=== PATIENT | female | born 1985 | race Two or more races ===

== ENCOUNTER 2025-09-25 20:12 | Inpatient (IN) | payer MEDICAID, SELFPAY ==
[2025-09-25 20:14] VITALS: BMI 30.1
--- NOTE | 2025-09-25 20:25 | PD.EDADULT ---
ED General RME/HPI General Chief complaint: General Adult/Misc Complain Stated complaint: LEFT BREAST PAIN Arrival date/time: 09/25/25 20:12 RME / HPI RME / HPI narrative: Dr. Lovett?s Main ED Evaluation: 40yo female Related Data Home Medications ?Medication ?Instructions ?Recorded ?Confirmed amlodipine 10 mg tablet 10 mg PO QDAY 04/24/19 04/24/19 Previous Rx's ?Medication ?Instructions ?Recorded ciprofloxacin HCl 500 mg tablet 500 mg PO BID #14 tabs 04/24/19 (Cipro) hydrocodone 5 mg-acetaminophen 325 1 tab PO Q6H PRN pain #20 tabs 04/24/19 mg tablet ([place]) lisinopril 10 mg tablet 10 mg PO QDAY #30 tabs 07/26/20 calcium polycarbophil 625 mg 1,250 mg (2 x 625 mg) PO BID #30 07/26/23 tablet (FiberCon) tabs hydrocortisone acetate 25 mg 25 mg OK BID #24 ea 07/26/23 rectal suppository (Anusol-HC) ibuprofen 800 mg tablet 800 mg PO TID PRN pain #30 tabs 07/26/23 Allergies Allergy/AdvReac Type Severity Reaction Status Date / Time No Known Allergies Allergy Verified 07/26/20 16:07 Review of Systems Review of Systems Systems Reviewed: All systems reviewed, normal except as documented Past Medical History Past Medical History NEUROLOGIC: Negative Neurological Disorders or Seizures CARDIAC: Positive Hypertension; Negative Congestive Heart Failure RESPIRATORY: Negative Chronic Obstructive Pulmonary Disease (COPD) GASTROINTESTINAL: Negative Gastrointestinal Disorders GENITOURINARY: Positive Genitourinary Disorders and Kidney Stones; Negative Renal Disease REPRODUCTIVE: Negative Pelvic Inflammatory Disease MUSCULOSKELETAL: Negative Musculoskeletal Disorders ENDOCRINE: Negative Diabetes Mellitus Type 1 or Diabetes Mellitus Type 2 HEMATOLOGIC: Negative Blood Disorders OTHER HISTORY: Negative Blood Transfusions, Blood Transfusion Reaction or Anesthesia Reactions Family History FAMILY HISTORY: Negative Family Cardiac Disorders Surgical History SURGICAL: Positive Section (x4) Social History SMOKING STATUS: Never smoker SUBSTANCE USE: does not use ED Exam Narrative Physical exam: GENERAL APPEARANCE: alert and oriented x 4, well-developed, well-nourished, no acute distress VITALS: All vitals were reviewed and the pulse ox is % on room air, which is normal according to my interpretation. HEENT: Normocephalic, atraumatic; pupils equal, round, reactive to light; EOMI; mucous membranes pink, moist; oropharynx clear NECK: Supple LUNGS: CTABL; no wheezes, no rales, no rhonchi HEART: Regular rate, regular rhythm; normal S1, S2; no murmurs ABDOMEN: non distended; normal BS; soft, no tenderness, no guarding, no rebound; no masses, no organomegaly, no hernia BACK: no CVA tenderness EXTREMITIES: atraumatic; no edema NEUROLOGIC: awake; alert and oriented x4; cranial nerves II-XII grossly intact; no focal sensory or motor deficits PSYCHIATRIC: appropriate mood and affect SKIN: warm, dry, normal color; no rashes Discharge Plan Prescriptions/Referrals Prescriptions/Med Rec: No Action amlodipine 10 mg Tablet 10 mg PO QDAY hydrocodone-acetaminophen [[place]] 5-325 mg tablet 1 tab PO Q6H MDD 4 PRN (Reason: pain) Qty: 20 0RF ciprofloxacin HCl [Cipro] 500 mg tablet 500 mg PO BID Qty: 14 0RF lisinopril 10 mg tablet 10 mg PO QDAY Qty: 30 0RF calcium polycarbophil [FiberCon] 625 mg tablet 1,250 mg PO BID Qty: 30 0RF hydrocortisone acetate [Anusol-HC] 25 mg suppository 25 mg OK BID Qty: 24 0RF ibuprofen 800 mg tablet 800 mg PO TID PRN (Reason: pain) Qty: 30 0RF Patient/Caregiver Discharge Instructions Print Language: Welsh MDM Narrative MDM hospital course (for use when minimal MDM required): Scribe Attestation: 09/25/25 - Mary Peterson am scribing for and in the presence of Dr. Lovett. Clinical Information Provided by: patient Medical Records reviewed [facility] (Per chart review, patient was seen here on 07/26/23 for external hemorrhoid, thrombosed.) Meds/Rx considered, not ordered None Labs/Rad/Tests considered, not ordered None Chronic Illness/Social Conditions Explain: Hx HTN
[2025-09-25 20:32] VITALS: BP 149/91; PULSE 120; RESP 20; TEMP 38.1; O2SAT 97
--- NOTE | 2025-09-25 20:40 | XR_ITS ---
EXAMINATION: PA chest single view TECHNIQUE: Upright PA chest single view Date and time: September 25, 2025, 2043 hours INDICATIONS: Chest pain shortness of breath weakness beginning 2 days ago. FINDINGS: Normal heart size Minor subsegmental atelectasis left base. No pneumonia or pulmonary edema IMPRESSION: No pneumonia or pulmonary edema
--- NOTE | 2025-09-25 20:49 | PD.EDRME ---
Rapid Medical Screening Exam RME Arrival date/time: 09/25/25 20:12 40F with history of HTN presents to ED with 1 day of L breast pain and fevers/chills. Patient denies URI symptoms and has not been breast feeding. Patient also denies skin injury. Chief Complaint: General Adult/Misc Complain Time Seen by Provider: 09/25/25 20:25 Vital signs: Vital Signs Temperature 100.5 F H 09/25/25 20:32 Pulse Rate 120 H 09/25/25 20:32 Respiratory Rate 20 09/25/25 20:32 Blood Pressure 149/91 H 09/25/25 20:32 Pulse Oximetry (%) 97 09/25/25 20:32 Oxygen Delivery Method Room Air 09/25/25 20:32 Exam: L breast very tender, but no obvious redness or swelling. Clinical Impression: Cellulitis vs skin abscess vs URI vs CAP vs breast cancer vs mastitis
[2025-09-25 21:06] LABS: Lactate (Lactic Acid) 1.9 mMol/L (0.4-2.0)
[2025-09-25 21:07] LABS: Basophils # (Auto) 0.1 Thou/mm3 (0.0-0.2); Basophils % (Auto) 0 % (0-2.5); Eosinophils # (Auto) 0.0 Thou/mm3 (0.0-0.5); Eosinophils % (Auto) 0 % (0-10); Hematocrit 29.0 % (36.0-46.0); Hemoglobin 9.1 g/dL (12.0-16.0); Immature Granulocytes Auto 0.11 Thou/mm3 (0.00-0.00); Lymphocytes # (Auto) 2.4 Thou/mm3 (1.0-4.8); Lymphocytes % (Auto) 11 % (10-50); Mean Corpuscular HGB Conc 31.4 g/dl (31.0-37.0); Mean Corpuscular Hemoglobin 22.0 pg (25.0-35.0); Mean Corpuscular Volume 70 fL (80-100); Monocytes # (Auto) 1.0 Thou/mm3 (0.0-0.8); Monocytes % (Auto) 5 % (0-12); Neutrophils # (Auto) 18.2 Thou/mm3 (1.8-7.7); Neutrophils % (Auto) 83 % (37-80); Nucleated Red Blood Cell # 0.00 Thou/mm3 (0.00-0.00); Nucleated Red Blood Cell % 0 /100 WBC (0); Platelet Count 495 Thou/mm3 (140-440); RDW Standard Deviation 41.2 fL (36.4-46.3); Red Blood Count 4.14 Miln/mm3 (4.00-5.20); White Blood Count 21.8 Thou/mm3 (3.6-11.0)
[2025-09-25 21:30] VITALS: BP 123/75; PULSE 112; RESP 18; TEMP 37.9; O2SAT 100
[2025-09-25] MEDS: SODIUM CHLORIDE 0.9% 1000 ML 1,000 ML 999 ML IV ×2 (21:32→23:09)
[2025-09-25] MEDS: KETOROLAC INJ 30 MG/ML VIAL IVP (21:32)
[2025-09-25] MEDS: cefTRIAXone/D5w 1gm IV premix 1 GM/50 ML BAG IV (21:32)
[2025-09-25 21:42] LABS: Alanine Aminotransferase 16 U/L (10-49); Albumin, Serum 4.4 gm/dL (3.5-5.0); Albumin/Globulin Ratio 1.3 (1.2-2.2); Alkaline Phosphatase 94 U/L (46-116); Anion Gap 10 (7-16); Aspartate Amino Transferase 17 U/L (0-34); BUN/Creatinine Ratio 11 Ratio (12-20); Bilirubin,Total 0.3 mg/dL (0.3-1.2); Blood Urea Nitrogen 9 mg/dL (9-23); Calcium 9.4 mg/dL (8.3-10.6); Calcium (Corrected) 9.4 mg/dL (8.5-10.1); Carbon Dioxide 20.2 mMol/L (20.0-31.0); Chloride 107 mMol/L (98-107); Creatinine (Component) 0.8 mg/dL (0.6-1.3); Estimated Creatinine Clearance 92.8 mL/min (>60); Globulin 3.3 gm/dL (2.3-3.5); Glucose 191 mg/dL (74-106); Osmolality,Calculated 277 (275-295); Potassium 3.7 mMol/L (3.4-5.1); Procalcitonin < 0.04 ng/ml (0.0-0.49); Sodium 137 mMol/L (136-145); Total Protein 7.7 gm/dL (5.7-8.2); eGFR > 60 See Note
--- NOTE | 2025-09-25 21:48 | PD.EDADULT ---
ED General RME/HPI General Chief complaint: General Adult/Misc Complain Stated complaint: LEFT BREAST PAIN Time Seen by Provider: 09/25/25 20:25 Arrival date/time: 09/25/25 20:12 RME / HPI RME / HPI narrative: 09/25/25 20:12 40F with history of HTN presents to ED with 1 day of L breast pain and fevers/chills. Patient denies URI symptoms and has not been breast feeding. Patient also denies skin injury. Dr. Lovett?s Main ED Evaluation: 40yo female presenting with sudden onset left breast pain and swelling x 1 day. No fever, but reports occasional chills. Nausea without emesis. PMH includes DM, HTN, kidney stones. PSH includes x4, renal surgery for kidney stones. Social history is unremarkable. Related Data Home Medications ?Medication ?Instructions ?Recorded ?Confirmed amlodipine 10 mg tablet 10 mg PO QDAY HTN 04/24/19 09/26/25 aspirin 81 mg chewable tablet 1 tab PO QDAY 09/26/25 09/26/25 lisinopril 20 mg tablet 20 mg PO QDAY HTN 09/26/25 09/26/25 tramadol 50 mg tablet 50 mg PO QDAY 09/26/25 09/26/25 Previous Rx's ?Medication ?Instructions ?Recorded lisinopril 10 mg tablet 10 mg PO QDAY #30 tabs 07/26/20 Allergies Allergy/AdvReac Type Severity Reaction Status Date / Time No Known Allergies Allergy Verified 07/26/20 16:07 Review of Systems Review of Systems Systems Reviewed: All systems reviewed, normal except as documented Past Medical History Past Medical History NEUROLOGIC: Negative Neurological Disorders or Seizures CARDIAC: Positive Hypertension; Negative Congestive Heart Failure RESPIRATORY: Negative Chronic Obstructive Pulmonary Disease (COPD) GASTROINTESTINAL: Negative Gastrointestinal Disorders GENITOURINARY: Positive Genitourinary Disorders and Kidney Stones; Negative Renal Disease REPRODUCTIVE: Negative Pelvic Inflammatory Disease MUSCULOSKELETAL: Negative Musculoskeletal Disorders ENDOCRINE: Negative Diabetes Mellitus Type 1 or Diabetes Mellitus Type 2 HEMATOLOGIC: Negative Blood Disorders OTHER HISTORY: Negative Blood Transfusions, Blood Transfusion Reaction or Anesthesia Reactions Family History FAMILY HISTORY: Negative Family Cardiac Disorders Surgical History SURGICAL: Positive Section Social History SMOKING STATUS: Never smoker SUBSTANCE USE: does not use ED Exam Narrative Physical exam: GENERAL APPEARANCE: alert and oriented x 4, well-developed, well-nourished, no acute distress VITALS: All vitals were reviewed and the pulse ox is 100% on room air, which is normal according to my interpretation. Notably febrile and tachycardic. HEENT: Normocephalic, atraumatic; pupils equal, round, reactive to light; EOMI; mucous membranes pink, moist; oropharynx clear NECK: Supple LEFT BREAST: Female administrative support coordinator present. No nipple discharge or edema. 3x3 cm exquisite tender subcutaneous mass to the left lower lateral quadrant. LUNGS: CTABL; no wheezes, no rales, no rhonchi HEART: Tachycardic, regular rhythm; normal S1, S2; no murmurs ABDOMEN: non distended; normal BS; soft, no tenderness EXTREMITIES: atraumatic; no edema NEUROLOGIC: awake; alert and oriented x4; cranial nerves II-XII grossly intact; no focal sensory or motor deficits PSYCHIATRIC: appropriate mood and affect SKIN: warm, dry, normal color; no rashes Course Course Course Narrative: 2039: Sepsis alert initiated. Orders made at this time are congruent with ED Adult Sepsis Order List. Re-evaluation is to be completed. CXR is ordered for determining the etiology of fever. 2131: NS IVF infused. 2252: Sepsis reassessment performed consisting of lab review, vitals, physical exam including auscultation of heart, lungs, and visual evaluation of capillary refills, mucosal membranes and extremities. Quality Measures Possible source: skin/soft tissue Blood cultures ordered: no Antibiotic ordered: Yes Pertinent labs: 09/25/25 20:52 Lactic Acid 1.9 mMol/L (0.4-2.0) Procalcitonin < 0.04 ng/ml (0.0-0.49) sepsis Orders Category Date Time Status Bedside COVID-19 Antigen Test NOW Care 09/25/25 23:39 Active Bedside Influenza A&B Antigen Test NOW Care 09/25/25 23:39 Completed COVID-19 Screening Questionnaire NOW Care 09/25/25 23:59 Active Continuous Pulse Oximetry STAT Care 09/25/25 21:57 Completed EKG (ED ONLY) *Do not use* NOW Care 09/25/25 21:57 Completed In and Out Catheter X1PRN Care 09/25/25 21:57 Completed Insert IV NOW Care 09/25/25 20:40 Active Insert IV NOW Care 09/25/25 21:57 Active NPO STAT Care 09/25/25 21:57 Completed Strict Intake and Output Routine Care 09/25/25 21:[address] chest abdomen pelvis wo Stat Exams 09/26/25 00:01 Completed EKG (ED Only) Stat Exams 09/25/25 21:57 Draft US breast LT complete Stat Exams 09/25/25 22:07 Completed XR chest 1V portable Stat Exams 09/25/25 20:40 Completed B-Type Natriuretic Peptide Stat Lab 09/25/25 20:52 Completed Blood Culture (Lab) Stat Lab 09/25/25 20:58 Results CBC Stat Lab 09/25/25 20:52 Completed CMP [Comprehensive Metabolic Panel] Stat Lab 09/25/25 20:52 Completed Drug Screen,Urine Stat Lab 09/25/25 21:17 Completed HCG Qualitative,Urine Stat Lab 09/25/25 21:17 Completed LDH (Lactate Dehydrogenase) Stat Lab 09/25/25 20:52 Completed Lactate (Lactic Acid) Stat Lab 09/25/25 20:52 Completed Lipase Stat Lab 09/25/25 20:52 Completed Magnesium Stat Lab 09/25/25 20:52 Completed Partial Thromboplastin Time Stat Lab 09/25/25 20:52 Completed Phosphorous Stat Lab 09/25/25 20:52 Completed Procalcitonin Stat Lab 09/25/25 20:52 Completed Prothrombin Time with INR Stat Lab 09/25/25 20:52 Completed Troponin I Stat Lab 09/25/25 20:52 Completed Urinalysis, C/S if Indicated Stat Lab 09/25/25 21:16 Completed Ketorolac Inj [Toradol Inj] Med 09/25/25 20:40 Discontinued 30 mg IVP X1 ONE Ringers Lactated 1000 ml [Lactated Ringers] 1,572 ml Med 09/25/25 21:57 Discontinued IV 1,572 mls/hr Sodium Chloride 0.9% 1000 ml [Ns] 1,000 ml Med 09/25/25 20:40 Discontinued IV 999 mls/hr Sodium Chloride 0.9% 1000 ml [Ns] 1,000 ml Med 09/25/25 22:19 Discontinued IV 999 mls/hr Vancomycin Inj 1,000 mg Med 09/25/25 22:30 Discontinued Sodium Chloride 0.9% 250 ml [Ns] 250 ml IV X1 Vancomycin Pharmacy to Dose Med 09/26/25 09:00 Active 1 each IV QDAY PRN cefTRIAXone/D5w 1gm IV premix [Rocephin/D5w 1gm IV Med 09/25/25 20:40 Discontinued premix] 1 gm in 50 ml IV X1 Oxygen Delivery NOW RT 09/25/25 21:57 Active Vital Signs Vital signs: Vital Signs Temperature 100.5 F H 09/25/25 20:32 Pulse Rate 120 H 09/25/25 20:32 Respiratory Rate 20 09/25/25 20:32 Blood Pressure 149/91 H 09/25/25 20:32 Pulse Oximetry (%) 97 09/25/25 20:32 Oxygen Delivery Method Room Air 09/25/25 20:32 Critical Care Time Critical Care Time Critical Care Time: Yes Total Critical Care Time (min.): 40 Attestation: The high probability of sudden, clinically significant deterioration in the patient?s condition required the highest level of my preparedness to intervene urgently. The services I provided to this patient were to treat and/or prevent clinically significant deterioration. Services included the following: chart data review, reviewing nursing notes and/or old charts, documentation time, jury consultant collaboration regarding findings and treatment options, medication orders and management, direct patient care, vital sign assessments and ordering, interpreting and reviewing diagnostic studies and lab tests. Aggregate critical care time includes only time during which I was engaged in work directly related to the patient?s care, as described above, whether at bedside or elsewhere in the Emergency Department. It did not include time spent performing other reported procedures or the services of residents, students, nurses or physician assistants. Discharge Plan Plan Patient Disposition: Admit Acute Care w/in Hospital Problem List Clinical Impression: Acute febrile illness, Acute sepsis MDM Narrative MDM hospital course (for use when minimal MDM required): Scribe Attestation: 09/25/25 Mary Mcknight am scribing for and in the presence of Dr. Lovett. 40yo female presenting with sudden onset left breast pain and swelling x 1 day. No fever, but reports occasional chills. Nausea without emesis. Please see PE findings. Lab markers concerning for markedly elevated WBC count of 21.8 and left shift. Patient enrolled in sepsis protocol and received empiric dual IV antibiotics in addition to low-dose narcotic analgesics and fluids per protocol. Patient pending breast US. Left breast ultrasound demonstrates nodule suspicious for possible breast carcinoma, no definitive breast abscess is evident. Will obtain COVID and Influenza swabs as source of infection is not clearly known at this time. Will consult the hospitalist for admission for IV abx pending cultures. Dx: acute febrile illness, acute sepsis Clinical Information Provided by: patient Medical Records reviewed [facility] (Per chart review, patient was seen here on 07/26/23 for external hemorrhoid, thrombosed.) Meds/Rx considered, not ordered None Labs/Rad/Tests considered, not ordered None Chronic Illness/Social Conditions Explain: Hx HTN EKG Interpretation EKG #1: EKG Interpretation: EKG done at 2233, sinus rhythm, rate of 98, no acute pathological ST segment changes, no ectopy, nonspecific ST-T changes, normal axis, according to my interpretation. Labs Labs: interpreted by me Imaging Imaging interpretation: interpreted by me Imaging Interpretation(s): [facility] Signed Patient: SEVENLUIS ENRIQUESTEPHENPADILLAEVAKUN Med. Record#: [id number] Birthdate: 1985 Age/Sex: 40 / F Location: [facility] Attending Dr: Ordering Physician: Sourav Park PA-C Date of Service: 09/25/25 Procedure(s): XR chest 1V portable Accession Number(s): [id number] cc: Nick Colunga MD; Bonnie Anne COLLARETTE SEPARATOR; Sourav Park PA-C~ EXAMINATION: PA chest single view TECHNIQUE: Upright PA chest single view Date and time: September 25, 2025, 2043 hours INDICATIONS: Chest pain shortness of breath weakness beginning 2 days ago. FINDINGS: Normal heart size Minor subsegmental atelectasis left base. No pneumonia or pulmonary edema IMPRESSION: No pneumonia or pulmonary edema Dictated By: Nick Colunga MD Signed By: <Electronically signed by Nick Colunga MD in OV> 09/25/258 [facility] Signed Patient: NATASHASTEPHENPADILLAKUN VELASQUEZ Record#: [id number] Birthdate: 1985 Age/Sex: 40 / F Location: [facility] Attending Dr: Ordering Physician: Suresh Villarreal DO Date of Service: 09/25/25 Procedure(s): US breast LT complete Accession Number(s): [id number] cc: Suresh Villarreal DO; Nick Colunga MD; Bnonie Anne NP~ Examination: Breast ultrasound, unilateral, left INDICATIONS: Left breast pain today Date and time of exam: September 25, 2025, 10:20 p.m. Technique: Real-time muñoz scale ultrasonographic imaging performed left breast including all 4 quadrants as well as nipple retroareolar and axillary region. Findings: 12:00 cyst 4 x 4 mm 1:00 nodule indistinct margins 25 x 27 mm 2:00 nodule lobular margins 16 x 16 mm IMPRESSION: BI-RADS Category 4: Suspicious for malignancy Suspicious nodule 1 o'clock position left breast, biopsy is needed to exclude breast carcinoma, this mass is amenable to ultrasound-guided breast biopsy for diagnosis Also recommend diagnostic mammography follow-up Dictated By: Nick Colunga MD Signed By: <Electronically signed by Nick Colunga MD in OV> 09/25/25 1477 Medication Administration(s) Medication Administration History Acetaminophen (Acetaminophen 325 Mg Tablet) 650 mg PO Q6H PRN PRN Reason: Fever >101.5 Stop: 10/26/25 03:03 Last Admin: 09/27/25 16:06 Dose: 650 mg Documented By: CHAVO Hydrocodone Bitart/Acetaminophen (Hydrocodone/Apap 5/325 Tablet) 1 tab PO Q4HR PRN PRN Reason: PAIN SCALE 7-10 (Severe Stop: 10/01/25 03:03 Last Admin: 09/26/25 23:40 Dose: 1 tab Documented By: Admin: 09/26/25 09:39 Dose: 1 tab Documented By: AALIYAH Ceftriaxone Sodium/Dextrose (Rocephin/D5w 1gm Iv Premix) 1 gm in 50 mls @ 100 mls/hr IV QDAY [facility] Stop: 10/03/25 14:22 Last Admin: 09/27/25 10:53 Dose: 100 mls/hr Documented By: Infusion: 09/26/25 15:20 Dose: Infused Documented By: Admin: 09/26/25 14:50 Dose: 100 mls/hr Documented By: ROYER Vancomycin/Sodium Chloride (Vancomycin/Ns 1 Gm Ivpb) 200 mls @ 120 mls/hr IV BID@1000,2200 ADITYA; Protocol Stop: 10/04/25 10:44 Last Admin: 09/27/25 23:38 Dose: 120 mls/hr Documented By: Infusion: 09/27/25 14:24 Dose: Infused Documented By: Admin: 09/27/25 12:43 Dose: 120 mls/hr Documented By: CHAVO Morphine Sulfate (Morphine Sulf Inj 4 Mg/Ml Vial) 2 mg IVP Q6HR PRN; Protocol PRN Reason: BREAKTHROUGH PAIN (SEVERE) Stop: 10/01/25 03:03 Ondansetron HCl (Ondansetron Inj 2 Mg/Ml Inj 2 Ml) 4 mg IVP Q6H PRN; Protocol PRN Reason: NAUSEA OR VOMITING Stop: 10/26/25 03:03 Pantoprazole Sodium (Pantoprazole 40 Mg Tablet) 40 mg PO QDAY ADITYA Stop: 10/26/25 08:59 Last Admin: 09/27/25 10:53 Dose: 40 mg Documented By: Admin: 09/26/25 09:16 Dose: 40 mg Documented By: Pharmacy Consult (Vancomycin Pharmacy To Dose 1 Each Each) 1 each IV QDAY PRN PRN Reason: CONSULT Stop: 10/26/25 08:59 Discontinued Medications Sodium Chloride (Ns) 1,000 mls @ 999 mls/hr IV .Q1H1M ONE Stop: 09/25/25 21:40 Last Infusion: 09/25/25 22:23 Dose: Infused Documented By: Admin: 09/25/25 21:32 Dose: 999 mls/hr Documented By: AKIL Ceftriaxone Sodium/Dextrose (Rocephin/D5w 1gm Iv Premix) 1 gm in 50 mls @ 100 mls/hr IV X1 ONE Stop: 09/25/25 21:09 Last Infusion: 09/25/25 22:02 Dose: Infused Documented By: Admin: 09/25/25 21:32 Dose: 100 mls/hr Documented By: AKIL Lactated Ringer's (Lactated Ringers) 1,572 mls @ 1,572 mls/hr 30 ml/kg infuse over 60 min (1572 ml) IV .Q1H ONE Stop: 09/25/25 22:56 Last Infusion: 09/25/25 23:51 Dose: Infused Documented By: Admin: 09/25/25 22:31 Dose: 1,572 mls/hr Documented By: AKIL Sodium Chloride (Ns) 1,000 mls @ 999 mls/hr IV .Q1H1M ONE Stop: 09/25/25 23:19 Last Infusion: 09/26/25 00:10 Dose: Infused Documented By: Admin: 09/25/25 23:09 Dose: 999 mls/hr Documented By: AKIL Vancomycin HCl 1,000 mg/ (Sodium Chloride) 250 mls @ 120 mls/hr IV X1 ONE Stop: 09/26/25 00:34 Last Infusion: 09/26/25 01:15 Dose: Infused Documented By: Admin: 09/25/25 23:10 Dose: 120 mls/hr Documented By: AKIL Vancomycin/Sodium Chloride (Vancomycin/Ns 1 Gm Ivpb) 200 mls @ 120 mls/hr IV TID ADITYA; Protocol Stop: 10/03/25 13:59 Last Admin: 09/27/25 05:12 Dose: Not Given Documented By: KANIKA Non-Admin Reason: Held due to vanco trough level (22.7) Admin: 09/26/25 22:30 Dose: Not Given Documented By: KANIKA Non-Admin Reason: Per Protocol Comments: Vanco trough came back high at 22.7. Patient was not given medication but was spiked by nurse by error. Charge nurse notified. MD. was also made aware of vanco through level (Dr. Joshi). Per instruction from phamacy and doctor. Hold mediation. Medication wasted in med room due to spiking error. Infusion: 09/26/25 16:31 Dose: Infused Documented By: Admin: 09/26/25 14:50 Dose: 120 mls/hr Documented By: ROYER Vancomycin/Sodium Chloride (Vancomycin/Ns 1 Gm Ivpb) 200 mls @ 120 mls/hr IV X1 ONE Stop: 09/26/25 11:09 Last Infusion: 09/26/25 12:00 Dose: Infused Documented By: Admin: 09/26/25 09:40 Dose: 120 mls/hr Documented By: AALIYAH Ketorolac Tromethamine (Ketorolac Inj 30 Mg/Ml Vial) 30 mg IVP X1 ONE Stop: 09/25/25 20:41 Last Admin: 09/25/25 21:32 Dose: 30 mg Documented By: AKIL Nitrofurantoin Macrocrystals (Nitrofurantoin Macro 100 Mg Capsule) 100 mg PO BID ADITYA Stop: 09/29/25 08:59 Last Admin: 09/26/25 09:16 Dose: 100 mg Documented By: Potassium Phos/Sodium Phos (Naph,[facility] Mbdb 1 Packet (1.5 Gm)) 1 packet PO X1 ONE Stop: 09/26/25 07:15 Last Admin: 09/26/25 08:31 Dose: 1 packet Documented By: DO Sennosides (Senna/Docusate Sod 1 Tab Tablet) 1 tab PO X1 ONE; Protocol Stop: 09/27/25 19:48 Last Admin: 09/27/25 20:21 Dose: 1 tab Documented By: JESSICA Sennosides (Senna Tablet) 1 tab PO X1 ONE; Protocol Stop: 09/27/25 19:50 see above Consultations/Discussions re: Management Consult #1: Date/time: 09/25/25 11:57 pm Physician, specialty, service, details: Discussed case with the resident physician, attending Dr. Doshi from Hospitalist service regarding admission. Discussed patients ED course, exam findings, labs, and radiology results. The Hospitalist will evaluate the patient for admission. Diagnosis Differential Diagnosis ED Complaint MDM: sepsis, UTI, pneumonia, mastitis, abscess, dehydration
[2025-09-25 21:57] VITALS: RESP 18; O2SAT 99
[2025-09-25 21:57] LABS: HCG Qualitative,Urine Negative
--- NOTE | 2025-09-25 21:57 | EKG_ITS ---
[facility] Test Date: 2025-09-25 Pat Name: KUN DEL VALLEepartment: Room: - Gender: Female Dispute Resolution Analyst: : 1985 Requested By: Suresh Montaño Order Number: [id number] Reading MD: Suresh Montaño Measurements Intervals [place] Rate: 98 P: 8 IA: 144 QRS: 47 QRSD: 84 T: 13 QT: 338 QTc: 432 Interpretive Statements SINUS RHYTHM NONSPECIFIC T-WAVE ABNORMALITY No previous ECG available for comparison /store/S0/[id number]/ecg/[id number].pdf
[2025-09-25 22:02] LABS: Amphetamine/Methamp Scrn,U Negative (Negative); Barbiturate Screen,Urine Negative (Negative); Benzodiazepines Screen,Urine Negative (Negative); Benzoylecgonine Screen, Ur Negative (Negative); Fentanyl Screen,Urine Negative (Negative); Opiate Screen,Urine Negative (Negative); THC Screen,Urine Negative (Negative)
--- NOTE | 2025-09-25 22:07 | XR_ITS ---
Examination: Breast ultrasound, unilateral, left INDICATIONS: Left breast pain today Date and time of exam: September 25, 2025, 10:20 p.m. Technique: Real-time muñoz scale ultrasonographic imaging performed left breast including all 4 quadrants as well as nipple retroareolar and axillary region. Findings: 12:00 cyst 4 x 4 mm 1:00 nodule indistinct margins 25 x 27 mm 2:00 nodule lobular margins 16 x 16 mm IMPRESSION: BI-RADS Category 4: Suspicious for malignancy Suspicious nodule 1 o'clock position left breast, biopsy is needed to exclude breast carcinoma, this mass is amenable to ultrasound-guided breast biopsy for diagnosis Also recommend diagnostic mammography follow-up
[2025-09-25 22:15] LABS: Collection Type, Urine Clean Catch
[2025-09-25 22:17] LABS: INR 1.0 (0.9-1.3); Partial Thromboplastin Time 26.0 Seconds (22.0-36.0); Prothrombin Time 10.4 Seconds (9.0-12.2)
[2025-09-25 22:20] LABS: LDH (Lactate Dehydrogenase) 205 U/L (120-246); Lipase 37 U/L (12-53); Magnesium 1.9 mg/dL (1.6-2.6); Phosphorous 2.1 mg/dL (2.4-5.1); Troponin I < 0.002 ng/mL (0.0-0.045)
[2025-09-25 22:27] LABS: Amorphous Crystals,Urine Present (Absent); Bacteria,Urine Rare; Bilirubin,Urine Negative (Negative); Blood,Urine 1+ (Negative); Budding Yeast,Urine Present; Clarity,Urine Turbid (Clear/Hazy); Color,Urine Lt-Yellow (Lt Yel-Yel); Culture Indicated,Urine Not Indicated; Glucose, Urine 1+ (Negative); Ketones,Urine Negative (Negative); Leukocyte Esterase,Urine Negative (Negative); Nitrite,Urine Negative (Negative); PH,Urine 7.0 (5.0-7.0); Protein,Urine Negative (Neg - Trace); RBC,Urine 12 /hpf (0-3); Specific Gravity,Urine 1.018 (1.001-1.035); Squamous Epithelial Cell,Urine 2 /hpf (0-5); Urobilinogen,Urine Negative mg/dL (0.0-1.0); WBC,Urine 7 /hpf (0-5)
[2025-09-25 22:29] LABS: B-Type Natriuretic Peptide < 20 pg/mL (0-100)
[2025-09-25 22:32] VITALS: TEMP 36.7
[2025-09-25 22:38] VITALS: BP 108/68; PULSE 99; RESP 16; TEMP 37.1; O2SAT 99
[2025-09-25] MEDS: Vancomycin Inj 1,000 MG in SODIUM CHLORIDE 0.9% 250 ML 250 ML 120 MG IV (23:10)
[2025-09-26] VITALS (9 sets, daily range): BP systolic 100–148; BP diastolic 54–75; PULSE 76–95; RESP 16–21; TEMP 36.6–37.4; O2SAT 96–100; BMI 30.1
--- NOTE | 2025-09-26 00:01 | XR_ITS ---
Examination: CT chest, without intravenous contrast. CT abdomen, without intravenous contrast. CT pelvis, without intravenous contrast. 2-D sagittal and coronal reconstructions. 3-D reconstructions. Date and time of exam: September 26, 2025, 0106 hours INDICATIONS: Sepsis alert, unknown source of infection today CTDI vol (mgy) 8.01 DLP (MGycm) 570 Technique: Multiple CT images, 3.0 mm slice thickness, obtained chest, abdomen, pelvis, with the high-resolution 64 slice scanner.. Sagittal and coronal 2-D reconstructions are obtained. 3-D reconstructions Low dose protocols were performed. One or more of the following dose reduction techniques were used; automated exposure control, adjustment of the mA and/or KV according to patient size, use of iterative reconstruction technique. Findings: No thoracic aortic aneurysm dilatation Pulmonary artery segments are not enlarged. No mediastinal lymphadenopathy. Atelectasis versus mild pneumonia in the lingular segment No liver or splenic lesion No gallstones Gallbladder wall does not appear thickened No pancreatic or adrenal mass Large right renal calculi with mild dilatation of right renal calyces and proximal right ureter, no ureteral calculi No bowel obstruction Normal appendix No pelvic mass Bladder intact IMPRESSION: Atelectasis versus mild pneumonia in the lingular segment left upper lobe Multiple right renal calculi Suspicious for right urinary tract infection Normal appendix
--- NOTE | 2025-09-26 02:51 | PRELIM_ITS ---
CT scan of the chest, abdomen and pelvis without intravenous contrast (axial sections with sagittal and coronal reformats) September 26, 2025 0106 hours Clinical History: Sepsis no obvious source Comparison: None available at the time of this report. Findings: Small consolidation in the lingula. There is no pleural effusion or pneumothorax. The aorta is unremarkable on this noncontrast study. No evidence of mediastinal mass or lymphadenopathy. There is no pericardial effusion. The liver, gallbladder, spleen, pancreas, and adrenals are unremarkable on this noncontrast study. Nonobstructing right kidney stones. No evidence of bowel obstruction. The appendix is within normal limits. The urinary bladder is unremarkable. The uterus and ovaries are within normal limits. There is no free fluid or free air. Fat-containing umbilical hernia without evidence of inflammation. The osseous structures are unremarkable. Impression: Nonobstructing right nephrolithiasis. Small consolidation in the lingula, atelectasis versus scarring versus small focus of pneumonia. Report Electronically Signed By: Harlan John 09/26/2025 2:51:02 AM [EST]
[2025-09-26 03:55] LABS: Cardiac Risk Estimate 4.4 RATIO (3.7-5.6); Cholesterol 197 mg/dL (132-200); HDL Cholesterol 45 mg/dL (40-60); LDL Cholesterol,Calculated 117 mg/dL (0-130); Triglycerides 175 mg/dL (30-150)
--- NOTE | 2025-09-26 05:11 | PD.RESHP ---
Documentation for date of: 09/26/25 HPI History of Present Illness Chief complaint: Pain in the left breast History of present illness: A 40-year-old female with significant past medical history of hypertension, nephrolithiasis s/p procedure presented to the hospital with chief complaints of pain and lump in the left breast, fever since 1 day. Reported that she is normal 2 days ago, the day before admission she noticed small lump in the left breast while taking shower, following day she developed severe pain at the site of lump and fever on the day of admission. As the pain is worsening, presented to the hospital for further evaluation. Denies trauma, currently not actively lactating, recent sick contacts, nausea, vomitings, shortness of breath, chest pain, any other associated symptoms. Reported on the day of admission, she noted to have mild burning micturition but very minimal. ED course: - Vitals at the time of admission are significant for blood pressure 149/91 mmHg, pulse rate 120 bpm, temperature 100.5 ?F - Labs at the time of admission significant for WBC 21.8, platelet count 495, phosphorus 2.1 - Urinalysis significant for turbid urine, 1+ glucosuria, 1+ blood, 12 RBC, 7 WBC - Breast ultrasound was done that showed BI-RADS Category 4 - suspicion nodule 1 o'clock position left breast, 25 x 27 mm - Admitted in the hospital for suspected breast abscess Past medical history: Hypertension, nephrolithiasis Past surgical history: Nephrolithiasis s/p procedure, unsure of the name of the procedure Social history: Denies smoking, alcohol, other illicit drug abuse Allergies: NKDA Review of Systems Review of Systems Systems Reviewed: All systems reviewed, normal except as documented Exam Vital Signs Temp Pulse Resp BP Pulse Ox O2 Del Method 97.9 F 94 18 112/61 99 Room Air 09/26/25 03:24 09/26/25 03:24 09/26/25 03:24 09/26/25 03:24 09/26/25 03:24 09/26/25 00:12 Narrative Exam General: Awake. HEENT: Normocephalic, atraumatic, mucous membranes moist. Heart: Regular rate and rhythm, no murmurs. Breast: Noted lump in the left breast, severe tenderness, warmth noted. Lungs: Clear to auscultation with no wheezing or crackles. Abdomen: Soft, nondistended, nontender, positive bowel sounds. ?No guarding or rebound tenderness. Neurologic: Alert and oriented x3, no gross neurological deficit, and patient able to move all 4 extremities. Extremities: No edema. Skin: No rash or ecchymoses. Results: Labs 09/27/25 05:25 09/27/25 05:25 Labs: Short CBC 09/25/25 Range/Units 20:52 WBC 21.8 H (3.6-11.0) Thou/mm3 Hgb 9.1 L (12.0-16.0) g/dL Hct 29.0 L (36.0-46.0) % Plt Count 495 H (140-440) Thou/mm3 BMP 09/25/25 20:52 Sodium 137 Potassium 3.7 Chloride 107 Carbon Dioxide 20.2 BUN 9 Creatinine 0.8 Glucose 191 H Calcium 9.4 Cardiac Enzymes 09/25/25 Range/Units 20:52 Troponin I < 0.002 (0.0-0.045) ng/mL Liver Function 09/25/25 Range/Units 20:52 Total Bilirubin 0.3 (0.3-1.2) mg/dL AST 17 (0-34) U/L ALT 16 (10-49) U/L Alkaline Phosphatase 94 (46-116) U/L Albumin 4.4 (3.5-5.0) gm/dL Urine 09/25/25 Range/Units 21:16 Urine Color Lt-Yellow (Lt Yel-Yel) Urine Clarity Turbid A (Clear/Hazy) Urine pH 7.0 (5.0-7.0) Ur Specific [place] 1.018 (1.001-1.035) Urine Protein Negative (Neg - Trace) Urine Glucose (UA) 1+ A (Negative) Quality Measures Quality Measures sepsis Current suspected stage: ruled out Possible source: skin/soft tissue Blood cultures ordered: yes Antibiotic ordered: Yes Medications Home Medications and Allergies Home Medications ?Medication ?Instructions ?Recorded ?Confirmed ?Type amlodipine 10 mg tablet 10 mg PO QDAY HTN 04/24/19 09/26/25 History aspirin 81 mg chewable tablet 1 tab PO QDAY 09/26/25 09/26/25 History lisinopril 20 mg tablet 20 mg PO QDAY HTN 09/26/25 09/26/25 History tramadol 50 mg tablet 50 mg PO QDAY 09/26/25 09/26/25 History Allergies Allergy/AdvReac Type Severity Reaction Status Date / Time No Known Allergies Allergy Verified 07/26/20 16:07 Visit Medications Acetaminophen (Acetaminophen 325 Mg Tablet) 650 mg PO Q6H PRN PRN Reason: Fever >101.5 Stop: 10/26/25 03:03 Hydrocodone Bitart/Acetaminophen (Hydrocodone/Apap 5/325 Tablet) 1 tab PO Q4HR PRN PRN Reason: PAIN SCALE 7-10 (Severe Stop: 10/01/25 03:03 Morphine Sulfate (Morphine Sulf Inj 4 Mg/Ml Vial) 2 mg IVP Q6HR PRN PRN Reason: BREAKTHROUGH PAIN (SEVERE) Stop: 10/01/25 03:03 Ondansetron HCl (Ondansetron Inj 2 Mg/Ml Inj 2 Ml) 4 mg IVP Q6H PRN; Protocol PRN Reason: NAUSEA OR VOMITING Stop: 10/26/25 03:03 Pantoprazole Sodium (Pantoprazole 40 Mg Tablet) 40 mg PO QDAY [facility] Stop: 10/26/25 08:59 Pharmacy Consult (Vancomycin Pharmacy To Dose 1 Each Each) 1 each IV QDAY [facility] Stop: 10/26/25 08:59 Discontinued Medications Sodium Chloride (Ns) 1,000 mls @ 999 mls/hr IV .Q1H1M ONE Stop: 09/25/25 21:40 Last Infusion: 09/25/25 22:23 Dose: Infused Ceftriaxone Sodium/Dextrose (Rocephin/D5w 1gm Iv Premix) 1 gm in 50 mls @ 100 mls/hr IV X1 ONE Stop: 09/25/25 21:09 Last Infusion: 09/25/25 22:02 Dose: Infused Lactated Ringer's (Lactated Ringers) 1,572 mls @ 1,572 mls/hr 30 ml/kg infuse over 60 min (1572 ml) IV .Q1H ONE Stop: 09/25/25 22:56 Last Infusion: 09/25/25 23:51 Dose: Infused Sodium Chloride (Ns) 1,000 mls @ 999 mls/hr IV .Q1H1M ONE Stop: 09/25/25 23:19 Last Infusion: 09/26/25 00:10 Dose: Infused Vancomycin HCl 1,000 mg/ (Sodium Chloride) 250 mls @ 120 mls/hr IV X1 ONE Stop: 09/26/25 00:34 Last Infusion: 09/26/25 01:15 Dose: Infused Ketorolac Tromethamine (Ketorolac Inj 30 Mg/Ml Vial) 30 mg IVP X1 ONE Stop: 09/25/25 20:41 Last Admin: 09/25/25 21:32 Dose: 30 mg Assessment & Plan Plan A 40-year-old female with significant past medical history of hypertension, nephrolithiasis s/p procedure presented to the hospital with chief complaints of pain and lump in the left breast, fever since 1 day and admitted in view of breast mass, abscess versus breast carcinoma # Left breast mass # Abscess versus malignancy versus mass with superimposed infection - Presented to the hospital with chief complaints of pain, lump in the left breast and fever since 1 day - Reported that she noticed the lump on the day before admission and never had similar complaints in the past - Denies history of breast cancers in the family, noted to have lung cancer in the family - Denies weight loss, weight gain - Currently not actively lactating, last child age is 11 years - Denies trauma to the breast, fever, shortness of breath, cough, any other associated symptoms Diagnostics: - Vitals at the time of admission are significant for blood pressure 149/91 mmHg, pulse rate 120 bpm, temperature 100.5 ?F - Labs at the time of admission significant for WBC 21.8, platelet count 495, phosphorus 2.1. Pro-Homero is within normal limits - Urinalysis significant for turbid urine, 1+ glucosuria, 1+ blood, 12 RBC, 7 WBC - Breast ultrasound was done that showed BI-RADS Category 4 - suspicion nodule 1 o'clock position left breast, 25 x 27 mm - Blood cultures were sent, follow-up with results Plan: - Started on vancomycin - Consulted general surgeon, Dr. Schafer - Ultrasound-guided left breast mass biopsy - Pain medications as needed, [place] every fourth hourly - Warm compresses # History of hypertension - Blood pressure at the time of admission is 149/91 mmHg - Later the blood pressures are within normal limits Plan - Will hold blood pressure medications for now and resume as needed Hospital Maintenance: Dispo: Medsurg DVT ppx: SCD GI ppx: Protonix Diet: Regular IV lines: Peripheral Code status: Full Patient plan of care was discussed with the attending physician, Dr. Tico Medina, PGY2 Attending Provider Attestation/Addendum I have examined the patient, reviewed labs and imaging findings, discussed the case with the resident(s), and reviewed entered orders. I agree with the plan of care as outlined in this note, with these additional summaries/recommendations: 40-year-old female presents with fevers, chills, left-sided breast pain with breast lump that is acute in onset with associated fevers x 1 day. Patient met SIRS criteria with significantly elevated white count of 21, no other source of infection identified at this time. Will admit for IV antibiotic therapy and consult general surgery for possible biopsy with concern for infectious versus malignant process. Javon Doshi MD
[2025-09-26 06:41] LABS: Basophils # (Auto) 0.1 Thou/mm3 (0.0-0.2); Basophils % (Auto) 0 % (0-2.5); Eosinophils # (Auto) 0.0 Thou/mm3 (0.0-0.5); Eosinophils % (Auto) 0 % (0-10); Hematocrit 25.5 % (36.0-46.0); Immature Granulocytes Auto 0.09 Thou/mm3 (0.00-0.00); Lymphocytes # (Auto) 2.0 Thou/mm3 (1.0-4.8); Lymphocytes % (Auto) 14 % (10-50); Mean Corpuscular HGB Conc 30.6 g/dl (31.0-37.0); Mean Corpuscular Hemoglobin 21.7 pg (25.0-35.0); Mean Corpuscular Volume 71 fL (80-100); Monocytes # (Auto) 1.0 Thou/mm3 (0.0-0.8); Monocytes % (Auto) 7 % (0-12); Neutrophils # (Auto) 11.2 Thou/mm3 (1.8-7.7); Neutrophils % (Auto) 78 % (37-80); Nucleated Red Blood Cell # 0.00 Thou/mm3 (0.00-0.00); Nucleated Red Blood Cell % 0 /100 WBC (0); Platelet Count 370 Thou/mm3 (140-440); RDW Standard Deviation 42.0 fL (36.4-46.3); Red Blood Count 3.60 Miln/mm3 (4.00-5.20); White Blood Count 14.4 Thou/mm3 (3.6-11.0)
[2025-09-26 06:54] LABS: Hemoglobin 7.8 g/dL (12.0-16.0)
[2025-09-26 06:58] LABS: Anion Gap 11 (7-16); BUN/Creatinine Ratio 10 Ratio (12-20); Blood Urea Nitrogen 6 mg/dL (9-23); Calcium 8.0 mg/dL (8.3-10.6); Carbon Dioxide 22.3 mMol/L (20.0-31.0); Chloride 112 mMol/L (98-107); Creatinine (Component) 0.6 mg/dL (0.6-1.3); Estimated Creatinine Clearance 123.8 mL/min (>60); Glucose 129 mg/dL (74-106); Osmolality,Calculated 288 (275-295); Potassium 3.6 mMol/L (3.4-5.1); Sodium 145 mMol/L (136-145); eGFR > 60 See Note
[2025-09-26 07:57] LABS: Iron 11 mcg/dL (50-170); Percent Iron Saturation 3 % (20-55); Total Iron Binding Capacity 346 mcg/dL (250-425); Unsaturated Iron Binding 335 (225-295)
--- NOTE | 2025-09-26 08:14 | PC.NURSE ---
Per US tech, unable to perform breast biopsy due to not having anyone available on the weekends and it's by appointment only. notified
[2025-09-26] MEDS: NAPH,KPH MBDB 1 PACKET (1.5 GM) PO (08:31)
[2025-09-26] MEDS: PANTOPRAZOLE 40 MG TABLET PO (09:16)
[2025-09-26] MEDS: NITROFURANTOIN MACRO 100 MG CAPSULE PO (09:16)
[2025-09-26] MEDS: HYDROcodone/APAP 5/325 TABLET 1 TAB PO ×2 (09:39→23:40)
[2025-09-26] MEDS: VANCOMYCIN/NS 1 GM IVPB 200 ML IV ×2 (09:40→14:50)
--- NOTE | 2025-09-26 11:07 | PC.NURSE ---
Dr. Schafer here to consult with patient. Per Dr. Schafer, no surgery necessary. Dr. Dyer, hospitalists made aware and states he will call Dr. Schafer
--- NOTE | 2025-09-26 11:41 | PC.NURSE ---
Admit providers at beside speaking with pt at this time
--- NOTE | 2025-09-26 14:10 | ESPR_ITS ---
<Statement entered by Lloyd Dyer MD - 09/26/25 16:37> I saw and examined patient personally and supervised PGY 1 resident, Dr. Thapa with formulating a management plan. I agree with the documentation with the exceptions as listed below. Patient presented to the ED with a chief complaint of left breast pain for 1 day. Patient denied any bites, trauma or family history of breast cancer. Breast ultrasound showed a 16 x 16 mm nodule at 2:00 and a 25 x 27 mm nodule at 1:00 BI-RADS 4. General surgery, Dr Schafer assessed the patient and does not think it is a breast abscess, he recommended outpatient follow-up for biopsy. Patient also has large right renal calculi. IR is not available over the weekend and biopsy will not be able to be done until 09/28. Incidentally patient also complained of dysuria and UA was positive for WBCs and yeast. Started patient on ceftriaxone and vancomycin empirically for possible soft tissue infection of the breast and UTI. Will keep patient overnight for preliminary blood culture results on 09/27. Anticipate discharge within next 24 to 48 hours with outpatient follow-up for diagnostic mammogram and breast biopsy. Also recommend outpatient urology follow up for large right renal stone. Plan of care discussed with Attending Dr. Saul Dyer MD PGY 2 Disclaimer: This note was dictated by speech recognition. Minor errors in race and sports book writer may be present due to voice recognition software. Documentation for date of: 09/26/25 Subjective Subjective Interval history: Patient was admitted overnight. Patient seen and examined at bedside. Patient states yesterday morning, had some left breast pain with no mass felt and at night a lump that appeared. Endorses 1 day of fever prompting current ED admission. Per Dr. Schafer, no inpatient biopsy at this time and to follow-up outpatient. Likely infectious etiology due to elevated WBC, fever and rapid growth of mass, low suspicion for malignancy however not entirely excluded. Will continue antibiotics and monitor mass size and fever. Patient will need outpatient diagnostic mammogram and biopsy of breast masses. Patient will also need outpatient urology follow-up for large right renal stone. Started ceftriaxone for urinary tract infection continue vancomycin for left breast masses. Exam Vital Signs Temp Pulse Resp BP Pulse Ox O2 Del Method 98.2 F 76 17 114/74 98 Room Air 09/26/25 11:46 09/26/25 11:46 09/26/25 11:46 09/26/25 11:46 09/26/25 11:46 09/26/25 11:46 Narrative Exam GENERAL: AOx3, no acute distress, [place] speaking HEENT: mucous membranes moist, bilateral sclera anicteric CARDIOVASCULAR: regular rate and rhythm, S1/S2 present, no murmurs appreciated BREAST: L breast 3 cm mass non fluctuant, tender to touch present lateral to L nipple at 2 o clock PULMONARY: clear to auscultation bilaterally, no rales/rhonchi/wheezes ABDOMINAL: soft, non-tender, non-distended, no rebound/guarding, bowel sounds present, bilateral scars above ASIS from kidney surgery in [place] EXTREMITIES: no peripheral edema SKIN: warm and dry, intact, no rashes NEURO: CN II-XII grossly intact, no focal deficits, alert, following commands Objective Labs 09/27/25 05:25 09/27/25 05:25 Labs: Laboratory Results - last 24 hr 09/25/25 09/25/25 09/25/25 20:52 20:57 21:16 WBC 21.8 H RBC 4.14 Hgb 9.1 L Hct 29.0 L MCV 70 L MCH 22.0 L MCHC 31.4 RDW Std Deviation 41.2 Plt Count 495 H Neut % (Auto) 83 H Lymph % (Auto) 11 [place] % (Auto) 5 Eos % (Auto) 0 Baso % (Auto) 0 Neut # (Auto) 18.2 H Lymph # (Auto) 2.4 [place] # (Auto) 1.0 H Eos # (Auto) 0.0 Baso # (Auto) 0.1 Immature Gran # (Auto) 0.11 H Absolute Nucleated RBC 0.00 Immature Gran % 1 H Nucleated RBC % 0 PT 10.4 INR 1.0 APTT 26.0 Sodium 137 Potassium 3.7 Chloride 107 Carbon Dioxide 20.2 Anion Gap 10 BUN 9 Creatinine 0.8 Estim Creat Clear Calc 92.8 eGFR > 60 BUN/Creatinine Ratio 11 L Glucose 191 H Calculated Osmolality 277 Lactic Acid 1.9 Calcium 9.4 Corrected Calcium 9.4 Phosphorus 2.1 L Magnesium 1.9 Iron TIBC Iron Saturation Unsat Iron Binding Total Bilirubin 0.3 AST 17 ALT 16 Alkaline Phosphatase 94 Lactate Dehydrogenase 205 Troponin I < 0.002 B-Natriuretic Peptide < 20 Total Protein 7.7 Albumin 4.4 Globulin 3.3 Albumin/Globulin Ratio 1.3 Triglycerides 175 H Cholesterol 197 LDL Cholesterol, Calc 117 HDL Cholesterol 45 Cholesterol/HDL Ratio 4.4 Lipase 37 Procalcitonin < 0.04 Ur Collection Type Clean Catch Urine Color Lt-Yellow Urine Clarity Turbid A Urine pH 7.0 Ur Specific [place] 1.018 Urine Protein Negative Urine Glucose (UA) 1+ A Urine Ketones Negative Urine Blood 1+ A Urine Nitrite Negative Urine Bilirubin Negative Urine Urobilinogen (Auto) Negative Ur Leukocyte Esterase Negative Urine RBC 12 H Urine WBC 7 H Ur Squamous Epith Cells 2 Amorphous Crystals Present A Urine Bacteria Rare Urine Yeast (Budding) Present A Ur Culture Indicated? Not Indicated Urine HCG, Qual Urine Opiates Screen Urine Fentanyl Screen Ur Barbiturates Screen U Amphetamin/Meth Scrn U Benzodiazepines Scrn U Cocaine Metab Screen U Marijuana (THC) Screen 09/25/25 09/26/25 21:17 06:09 WBC 14.4 H D RBC 3.60 L Hgb 7.8 L Hct 25.5 L MCV 71 L MCH 21.7 L MCHC 30.6 L RDW Std Deviation 42.0 Plt Count 370 D Neut % (Auto) 78 Lymph % (Auto) 14 [place] % (Auto) 7 Eos % (Auto) 0 Baso % (Auto) 0 Neut # (Auto) 11.2 H Lymph # (Auto) 2.0 [place] # (Auto) 1.0 H Eos # (Auto) 0.0 Baso # (Auto) 0.1 Immature Gran # (Auto) 0.09 H Absolute Nucleated RBC 0.00 Immature Gran % 1 H Nucleated RBC % 0 PT INR APTT Sodium 145 Potassium 3.6 Chloride 112 H Carbon Dioxide 22.3 Anion Gap 11 BUN 6 L Creatinine 0.6 Estim Creat Clear Calc 123.8 eGFR > 60 BUN/Creatinine Ratio 10 L Glucose 129 H D Calculated Osmolality 288 Lactic Acid Calcium 8.0 L Corrected Calcium Phosphorus Magnesium Iron 11 L TIBC 346 Iron Saturation 3 L Unsat Iron Binding 335 H Total Bilirubin AST ALT Alkaline Phosphatase Lactate Dehydrogenase Troponin I B-Natriuretic Peptide Total Protein Albumin Globulin Albumin/Globulin Ratio Triglycerides Cholesterol LDL Cholesterol, Calc HDL Cholesterol Cholesterol/HDL Ratio Lipase Procalcitonin Ur Collection Type Urine Color Urine Clarity Urine pH Ur Specific [place] Urine Protein Urine Glucose (UA) Urine Ketones Urine Blood Urine Nitrite Urine Bilirubin Urine Urobilinogen (Auto) Ur Leukocyte Esterase Urine RBC Urine WBC Ur Squamous Epith Cells Amorphous Crystals Urine Bacteria Urine Yeast (Budding) Ur Culture Indicated? Urine HCG, Qual Negative Urine Opiates Screen Negative Urine Fentanyl Screen Negative Ur Barbiturates Screen Negative U Amphetamin/Meth Scrn Negative U Benzodiazepines Scrn Negative U Cocaine Metab Screen Negative U Marijuana (THC) Screen Negative Quality Measures Quality Measures sepsis Current suspected stage: ruled out Possible source: skin/soft tissue Blood cultures ordered: yes Antibiotic ordered: Yes Assessment & Plan Assessment Current Active Medications: Generic Name Dose Route Start Last Admin Trade Name Freq PRN Reason Stop Dose Admin Acetaminophen 650 mg 09/26/25 03:04 Acetaminophen 325 Mg Tablet PO 10/26/25 03:03 Q6H PRN Fever >101.5 Hydrocodone Bitart/Acetaminophen 1 tab 09/26/25 03:04 09/26/25 09:39 Hydrocodone/Apap 5/325 Tablet PO 10/01/25 03:03 1 tab Q4HR PRN Administration PAIN SCALE 7-10 (Severe Vancomycin/Sodium Chloride 200 mls @ 120 mls/hr 09/26/25 14:00 Vancomycin/Ns 1 Gm Ivpb IV 10/03/25 13:59 TID ADITYA Protocol Morphine Sulfate 2 mg 09/26/25 03:04 Morphine Sulf Inj 4 Mg/Ml Vial IVP 10/01/25 03:03 Q6HR PRN BREAKTHROUGH PAIN (SEVERE) Nitrofurantoin Macrocrystals 100 mg 09/26/25 09:00 09/26/25 09:16 Nitrofurantoin Macro 100 Mg Capsule PO 09/29/25 08:59 100 mg BID ADITYA Administration Ondansetron HCl 4 mg 09/26/25 03:04 Ondansetron Inj 2 Mg/Ml Inj 2 Ml IVP 10/26/25 03:03 Q6H PRN NAUSEA OR VOMITING Protocol Pantoprazole Sodium 40 mg 09/26/25 09:00 09/26/25 09:16 Pantoprazole 40 Mg Tablet PO 10/26/25 08:59 40 mg QDAY ADITYA Administration Pharmacy Consult 1 each 09/26/25 09:00 Vancomycin Pharmacy To Dose 1 Each Each IV 10/26/25 08:59 QDAY PRN CONSULT Plan A 40-year-old female with significant past medical history of hypertension, nephrolithiasis s/p procedure presented to the hospital with chief complaints of pain and lump in the left breast, fever since 1 day and admitted in view of breast mass, abscess versus breast carcinoma #Left breast masses, 25x27 mm and 16x16 mm #L breast cyst 4x4 mm # Abscess versus malignancy versus mass with superimposed infection Ddx: infectious cysts, fibroadenoma, malignancy, trauma Presented to the hospital with chief complaints of pain, lump in the left breast and fever since 1 day. Reported that she noticed the lump on the day before admission and never had similar complaints in the past, lump was there 09/25 night and lump was not there that morning supporting infectious etiology Denies history of breast cancers in the family, noted to have lung cancer in the family, Denies weight loss, weight gain. Currently not actively lactating, last child age is 11 years. Denies trauma to the breast, fever, shortness of breath, cough, any other associated symptoms Diagnostics: - Vitals at the time of admission are significant for blood pressure 149/91 mmHg, pulse rate 120 bpm, temperature 100.5 ?F - Labs at the time of admission significant for WBC 21.8, platelet count 495, phosphorus 2.1. Pro-Homero is within normal limits - Urinalysis significant for turbid urine, 1+ glucosuria, 1+ blood, 12 RBC, 7 WBC - Breast ultrasound was done that showed BI-RADS Category 4 - suspicion nodule 1 o'clock position left breast, 25 x 27 mm - Blood cultures were sent, follow-up with results Plan: - Vancomycin (09/26- - Consulted general surgeon, Dr. Schafer: no inpatient biopsy at this time, follow up outpatient - Ultrasound-guided left breast mass biopsy for Sunday - Will need outpatient diagnostic mammogram and biopsy - Pain medications as needed, [place] every fourth hourly - Warm compresses #UTI Endorses dysuria and admission UA 7 WBC. s/p macrobid 09/26 x1 Plan: - Ceftriaxone (09/16- - CTM urinary symptoms # History of hypertension - Blood pressure at the time of admission is 149/91 mmHg - Later the blood pressures are within normal limits Plan - Will hold blood pressure medications for now and resume as needed #Iron deficiency anemia On admission hemoglobin 9.1, microcytic. Iron panel ordered showing iron at 11. Endorses being anemic her whole life. Patient previously took iron supplements for heavy periods however due to vomiting discontinued. Periods are regular soaks through 4 pads a day and periods can last up to 2 weeks. 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 Calvillo for L lithotripsy in 2019. CTAP shows multiple right renal caliculi including 1 large right renal caliculi with mild dilatation of right renal calyces and proximal right ureter, suspicious for urinary tract infection. Plan: - Patient notified - Outpatient urology follow up Hospital Maintenance: Dispo: Medsurg DVT ppx: SCD GI ppx: Protonix Diet: Regular IV lines: Peripheral Code status: Full Patient plan of care was discussed with the attending physician, Dr. Hughes and PGY-2 Dr. Gomez Thapa, Internal Medicine PGY-1 Attending Provider Attestation/Addendum I have seen and examined the patient. I was physically present for the nagel portions of the services provided including history, physical exam, diagnosis, treatment plans and orders. I agree with assessment and plan of care as documented by residents. Even though this this note was carefully revised there may still be minor errors in race and sports book writer due to voice recognition software. Kushal Hughes MD
[2025-09-26] MEDS: cefTRIAXone/D5w 1gm IV premix 1 GM/50 ML BAG IV (14:50)
[2025-09-26 21:55] LABS: Vancomycin,Trough 22.7 mcg/mL (5.0-10.0)
[2025-09-27] VITALS: BP 124/89; PULSE 105; RESP 17; TEMP 37.1; O2SAT 99
[2025-09-27 04:00] VITALS: BP 98/65; PULSE 87; RESP 16; TEMP 36.4; O2SAT 98
[2025-09-27 06:30] LABS: Basophils # (Auto) 0.1 Thou/mm3 (0.0-0.2); Basophils % (Auto) 1 % (0-2.5); Eosinophils # (Auto) 0.2 Thou/mm3 (0.0-0.5); Eosinophils % (Auto) 2 % (0-10); Hematocrit 27.3 % (36.0-46.0); Immature Granulocytes Auto 0.05 Thou/mm3 (0.00-0.00); Lymphocytes # (Auto) 2.2 Thou/mm3 (1.0-4.8); Lymphocytes % (Auto) 22 % (10-50); Mean Corpuscular HGB Conc 30.8 g/dl (31.0-37.0); Mean Corpuscular Hemoglobin 21.8 pg (25.0-35.0); Mean Corpuscular Volume 71 fL (80-100); Monocytes # (Auto) 0.8 Thou/mm3 (0.0-0.8); Monocytes % (Auto) 8 % (0-12); Neutrophils # (Auto) 6.7 Thou/mm3 (1.8-7.7); Neutrophils % (Auto) 67 % (37-80); Nucleated Red Blood Cell # 0.00 Thou/mm3 (0.00-0.00); Nucleated Red Blood Cell % 0 /100 WBC (0); Platelet Count 433 Thou/mm3 (140-440); RDW Standard Deviation 42.1 fL (36.4-46.3); Red Blood Count 3.85 Miln/mm3 (4.00-5.20); White Blood Count 9.9 Thou/mm3 (3.6-11.0)
[2025-09-27 06:32] LABS: Hemoglobin 8.4 g/dL (12.0-16.0)
[2025-09-27 06:53] LABS: Anion Gap 12 (7-16); BUN/Creatinine Ratio 10 Ratio (12-20); Blood Urea Nitrogen 7 mg/dL (9-23); Calcium 8.9 mg/dL (8.3-10.6); Carbon Dioxide 23.7 mMol/L (20.0-31.0); Chloride 107 mMol/L (98-107); Creatinine (Component) 0.7 mg/dL (0.6-1.3); Estimated Creatinine Clearance 106.1 mL/min (>60); Glucose 105 mg/dL (74-106); Osmolality,Calculated 282 (275-295); Potassium 4.3 mMol/L (3.4-5.1); Sodium 143 mMol/L (136-145); Thyroid Stimulating Hormone 1.76 uIU/mL (0.55-4.78); eGFR > 60 See Note
--- NOTE | 2025-09-27 07:57 | XR_ITS ---
Examination: Breast ultrasound complete, bilateral Date and time of exam: September 27, 2025, 0930 hours INDICATIONS: Breast sonography September 25, 2025 BI-RADS 4 suspicious nodule 1 o'clock position left breast Technique: Real-time grayscale ultrasonographic imaging bilateral breasts, including all 4 quadrants as well as nipple retroareolar and axillary regions. Findings: 9:00 nodule 8 x 8 mm circumscribed 10:00 nodule lobular margins 14 x 11 mm 11:00 nodule circumscribed 7 x 7 mm 11:00 nodule circumscribed 7 x 10 mm Retroareolar nodule circumscribed 7 x 7 mm Sonographic images left breast 1:00 nodule 2.8 x 1.3 x 2.8 cm irregular and indistinct margins 3:00 nodule circumscribed 5 x 6 mm IMPRESSION: BI-RADS Category 4: Suspicious for malignancy Suspicious mass 1 o'clock position left breast, biopsy is needed to exclude breast carcinoma, this mass is amenable to ultrasound-guided breast biopsy for diagnosis
[2025-09-27 08:00] VITALS: BP 115/77; PULSE 79; RESP 16; TEMP 36.4; O2SAT 98
[2025-09-27] MEDS: PANTOPRAZOLE 40 MG TABLET PO (10:53)
[2025-09-27] MEDS: cefTRIAXone/D5w 1gm IV premix 1 GM/50 ML BAG IV (10:53)
[2025-09-27 12:00] VITALS: BP 119/81; PULSE 74; RESP 16; TEMP 36.4; O2SAT 98
[2025-09-27] MEDS: VANCOMYCIN/NS 1 GM IVPB 200 ML IV ×2 (12:43→23:38)
--- NOTE | 2025-09-27 13:23 | ESPR_ITS ---
Documentation for date of: 09/27/25 Subjective Subjective Interval history: No acute overnight events. Patient seen and examined at bedside. Patient reports improved pain and no fever overnight. Denies nausea/vomiting, chills/fever or dysuria. VSS. WBC downtrending. Plan for ultrasound guided breast biopsy tomorrow. Repeat breast ultrasound shows multiple small nodules compared to previous ultrasound, anticipate biopsy of largest nodule. Continue antibiotics of vancomycin and ceftriaxone. Exam Vital Signs Temp Pulse Resp BP Pulse Ox O2 Del Method 97.5 F 79 16 115/77 98 Room Air 09/27/25 08:00 09/27/25 08:00 09/27/25 08:00 09/27/25 08:00 09/27/25 08:00 09/27/25 08:00 Narrative Exam GENERAL: AOx3, no acute distress, Green[place]ic speaking HEENT: mucous membranes moist, bilateral sclera anicteric CARDIOVASCULAR: regular rate and rhythm, S1/S2 present, no murmurs appreciated BREAST: L breast 3 cm mass non fluctuant, tender to touch present lateral to L nipple at 2 o clock PULMONARY: clear to auscultation bilaterally, no rales/rhonchi/wheezes ABDOMINAL: soft, non-tender, non-distended, no rebound/guarding, bowel sounds present, bilateral scars above ASIS from kidney surgery in [place] EXTREMITIES: no peripheral edema SKIN: warm and dry, intact, no rashes NEURO: CN II-XII grossly intact, no focal deficits, alert, following commands Objective Labs 09/28/25 05:00 09/28/25 05:00 Labs: Laboratory Results - last 24 hr 09/26/25 09/27/25 21:26 05:25 WBC 9.9 RBC 3.85 L Hgb 8.4 L Hct 27.3 L MCV 71 L MCH 21.8 L MCHC 30.8 L RDW Std Deviation 42.1 Plt Count 433 D Neut % (Auto) 67 Lymph % (Auto) 22 [place] % (Auto) 8 Eos % (Auto) 2 Baso % (Auto) 1 Neut # (Auto) 6.7 Lymph # (Auto) 2.2 [place] # (Auto) 0.8 Eos # (Auto) 0.2 Baso # (Auto) 0.1 Immature Gran # (Auto) 0.05 H Absolute Nucleated RBC 0.00 Immature Gran % 1 H Nucleated RBC % 0 Sodium 143 Potassium 4.3 D Chloride 107 Carbon Dioxide 23.7 Anion Gap 12 BUN 7 L Creatinine 0.7 Estim Creat Clear Calc 106.1 eGFR > 60 BUN/Creatinine Ratio 10 L Glucose 105 Calculated Osmolality 282 Calcium 8.9 TSH 1.76 Vancomycin Trough 22.7 H* Quality Measures Quality Measures sepsis Current suspected stage: ruled out Possible source: skin/soft tissue Blood cultures ordered: yes Antibiotic ordered: Yes Assessment & Plan Assessment Current Active Medications: Generic Name Dose Route Start Last Admin Trade Name Freq PRN Reason Stop Dose Admin Acetaminophen 650 mg 09/26/25 03:04 Acetaminophen 325 Mg Tablet PO 10/26/25 03:03 Q6H PRN Fever >101.5 Hydrocodone Bitart/Acetaminophen 1 tab 09/26/25 03:04 09/26/25 23:40 Hydrocodone/Apap 5/325 Tablet PO 10/01/25 03:03 1 tab Q4HR PRN Administration PAIN SCALE 7-10 (Severe Ceftriaxone Sodium/Dextrose 1 gm in 50 mls @ 100 mls/hr 09/26/25 14:23 09/27/25 10:53 Rocephin/D5w 1gm Iv Premix IV 10/03/25 14:22 100 mls/hr QDAY ADITYA Administration Vancomycin/Sodium Chloride 200 mls @ 120 mls/hr 09/27/25 10:45 09/27/25 12:43 Vancomycin/Ns 1 Gm Ivpb IV 10/04/25 10:44 120 mls/hr BID@1000,2200 ADITYA Administration Protocol Morphine Sulfate 2 mg 09/26/25 03:04 Morphine Sulf Inj 4 Mg/Ml Vial IVP 10/01/25 03:03 Q6HR PRN BREAKTHROUGH PAIN (SEVERE) Protocol Ondansetron HCl 4 mg 09/26/25 03:04 Ondansetron Inj 2 Mg/Ml Inj 2 Ml IVP 10/26/25 03:03 Q6H PRN NAUSEA OR VOMITING Protocol Pantoprazole Sodium 40 mg 09/26/25 09:00 09/27/25 10:53 Pantoprazole 40 Mg Tablet PO 10/26/25 08:59 40 mg QDAY ADITYA Administration Pharmacy Consult 1 each 09/26/25 09:00 Vancomycin Pharmacy To Dose 1 Each Each IV 10/26/25 08:59 QDAY PRN CONSULT Plan A 40-year-old female with significant past medical history of hypertension, nephrolithiasis s/p procedure presented to the hospital with chief complaints of pain and lump in the left breast, fever since 1 day and admitted in view of breast mass, abscess versus breast carcinoma #Left breast masses #L breast cyst 4x4 mm # Abscess versus malignancy versus mass with superimposed infection Ddx: infectious cysts, fibroadenoma, malignancy, trauma Presented to the hospital with chief complaints of pain, lump in the left breast and fever since 1 day. Reported that she noticed the lump on the day before admission and never had similar complaints in the past, lump was there 09/25 night and lump was not there that morning supporting infectious etiology Denies history of breast cancers in the family, noted to have lung cancer in the family, Denies weight loss, weight gain. Currently not actively lactating, last child age is 11 years. Denies trauma to the breast, fever, shortness of breath, cough, any other associated symptoms Diagnostics: Vitals at the time of admission are significant for blood pressure 149/91 mmHg, pulse rate 120 bpm, temperature 100.5 ?F Labs at the time of admission significant for WBC 21.8, platelet count 495, phosphorus 2.1. Pro-Homero is within normal limit. Urinalysis significant for turbid urine, 1+ glucosuria, 1+ blood, 12 RBC, 7 WBC. Breast ultrasound was done that showed BI-RADS Category 4 - suspicion nodule 1 o'clock position left breast, 25 x 27 mm. Blood cultures were sent, follow-up with results Repeat breast US on 09/27 shows multiple nodules on L breast: 9 o clock 8x8 mm circumscribed, 10 o clock nodule lower margins 14 x 11 mm, 11:00 nodule circumscribed 7 x 7 mm, 11:00 nodule circumscribed 7 x 10 mm, retroareolar nodule circumcised 7 x 7 mm, 1:00 nodule 2.8 x 1.3 x 2.8 cm irregular and indistinct margins, 3:00 nodule circumcised 5 x 6 mm Plan: - Vancomycin (09/26- - Consulted general surgeon, Dr. Schafer: no inpatient biopsy per surgery at this time, follow up outpatient - Ultrasound-guided left breast masses biopsy for tomorrow - Will need outpatient diagnostic mammogram - Pain medications as needed, [place] every fourth hourly - Warm compresses #UTI Endorses dysuria and admission UA 7 WBC. s/p macrobid 09/26 x1 Plan: - Ceftriaxone (09/16 - - CTM urinary symptoms # History of hypertension - Blood pressure at the time of admission is 149/91 mmHg - Later the blood pressures are within normal limits Plan - Will hold blood pressure medications for now and resume as needed #Iron deficiency anemia On admission hemoglobin 9.1, microcytic. Iron panel ordered showing iron at 11. Endorses being anemic her whole life. Patient previously took iron supplements for heavy periods however due to vomiting discontinued. Periods are regular soaks through 4 pads a day and periods can last up to 2 weeks. 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 Calvillo for L lithotripsy in 2019. CTAP shows multiple right renal caliculi including 1 large right renal caliculi with mild dilatation of right renal calyces and proximal right ureter, suspicious for urinary tract infection. Plan: - Patient notified - Outpatient urology follow up Hospital Maintenance: Dispo: Medsurg DVT ppx: SCD GI ppx: Protonix Diet: Regular IV lines: Peripheral Code status: Full Patient plan of care was discussed with the attending physician, Dr. Hughes and PGY-2 Dr. Gomez Thapa, DO Internal Medicine PGY-1 Senior Resident Attestation: The patient reported continuing to have pain over her left breast. Repeat US breast also was concerning for BI-RADS [address] Schafer was consulted, who recommended following up outpatient for breast biopsy. However, given the concern about possible malignancy, we will get IR breast biopsy tomorrow morning. Will continue to treat UTI with ceftriaxone. I discussed with and supervised the business services intern physician involved in the care of this patient. I personally saw and examined the patient and discussed the assessment and plan with the entire medicine team, including my attending. I agree with the assessment and plan as documented above. Aram Fink MD PGY3 Internal Medicine Attending Provider Attestation/Addendum I have seen and examined the patient. I was physically present for the nagel portions of the services provided including history, physical exam, diagnosis, treatment plans and orders. I agree with assessment and plan of care as documented by residents. Even though this this note was carefully revised there may still be minor errors in hollow tile partition erector due to voice recognition software. Kushal Hughes MD
[2025-09-27 16:00] VITALS: BP 122/74; PULSE 89; RESP 16; TEMP 36.4; O2SAT 98
[2025-09-27] MEDS: ACETAMINOPHEN 325 MG TABLET 650 MG PO (16:06)
[2025-09-27 19:34] LABS: Folate 15.14 ng/mL (>5.38); Vitamin B12 626 pg/mL (211-911)
[2025-09-27 20:00] VITALS: BP 113/85; PULSE 94; RESP 18; TEMP 36.9; O2SAT 98
[2025-09-27] MEDS: SENNA/DOCUSATE SOD 1 TAB TABLET PO (20:21)
[2025-09-27 23:01] LABS: Vancomycin,Trough 7.1 mcg/mL (5.0-10.0)
[2025-09-28] VITALS (9 sets, daily range): BP systolic 96–117; BP diastolic 61–77; PULSE 69–88; RESP 16–98; TEMP 36.9–37.2; O2SAT 98–99
[2025-09-28 06:14] LABS: Basophils # (Auto) 0.1 Thou/mm3 (0.0-0.2); Basophils % (Auto) 1 % (0-2.5); Eosinophils # (Auto) 0.1 Thou/mm3 (0.0-0.5); Eosinophils % (Auto) 1 % (0-10); Hematocrit 27.0 % (36.0-46.0); Immature Granulocytes Auto 0.04 Thou/mm3 (0.00-0.00); Lymphocytes # (Auto) 1.7 Thou/mm3 (1.0-4.8); Lymphocytes % (Auto) 20 % (10-50); Mean Corpuscular HGB Conc 30.7 g/dl (31.0-37.0); Mean Corpuscular Hemoglobin 21.7 pg (25.0-35.0); Mean Corpuscular Volume 71 fL (80-100); Monocytes # (Auto) 0.6 Thou/mm3 (0.0-0.8); Monocytes % (Auto) 7 % (0-12); Neutrophils # (Auto) 6.1 Thou/mm3 (1.8-7.7); Neutrophils % (Auto) 71 % (37-80); Nucleated Red Blood Cell # 0.00 Thou/mm3 (0.00-0.00); Nucleated Red Blood Cell % 0 /100 WBC (0); Platelet Count 450 Thou/mm3 (140-440); RDW Standard Deviation 41.1 fL (36.4-46.3); Red Blood Count 3.83 Miln/mm3 (4.00-5.20); White Blood Count 8.6 Thou/mm3 (3.6-11.0)
[2025-09-28 06:17] LABS: Hemoglobin 8.3 g/dL (12.0-16.0)
[2025-09-28 06:38] LABS: Anion Gap 12 (7-16); BUN/Creatinine Ratio 14 Ratio (12-20); Blood Urea Nitrogen 10 mg/dL (9-23); Calcium 8.9 mg/dL (8.3-10.6); Carbon Dioxide 25.5 mMol/L (20.0-31.0); Chloride 106 mMol/L (98-107); Creatinine (Component) 0.7 mg/dL (0.6-1.3); Estimated Creatinine Clearance 106.1 mL/min (>60); Glucose 118 mg/dL (74-106); Osmolality,Calculated 284 (275-295); Potassium 3.9 mMol/L (3.4-5.1); Sodium 143 mMol/L (136-145); eGFR > 60 See Note
[2025-09-28] MEDS: PANTOPRAZOLE 40 MG TABLET PO (08:30)
[2025-09-28] MEDS: cefTRIAXone/D5w 1gm IV premix 1 GM/50 ML BAG IV (08:30)
--- NOTE | 2025-09-28 09:55 | PC.SS ---
Follow up note: Breast guided biopsy pending.
[2025-09-28] MEDS: VANCOMYCIN/NS 1 GM IVPB 200 ML IV ×2 (10:42→22:02)
--- NOTE | 2025-09-28 12:35 | PC.SS ---
SS met with patient regarding her d/c plan. Pt is alert/oriented. Pt was admitted for To R/O Breast Abscess. Pt confirmed demographic and contact information is correct on facesheet. Pt resides with her son. Pt ambulates independently without assistance or DME. Pt is ok with all ADLs. Patient?s pharmacy of choice is [facility] [address]. Pt named her , Sai Davison and dtr, Shanell Smith, phone# [phone] medical decision maker if she is unable. Patient?s choice is to return home upon d/c. Pt states she is not diabetic and is not on dialysis. Pt states she followed up by phone with PCP in July. D/C plan: Return home Next of Kin: Sai Davison, , phone# [phone] PCP: Bonnie Anne from [facility] Address: Correct on facesheet
--- NOTE | 2025-09-28 13:46 | ESPR_ITS ---
<Statement entered by Zackery Sims MD - 10/09/25 07:44> I reviewed above note and agree with findings and plans. I have also personally examined the patient with medicine team and went over assessment and plan with medical team including graphic design intern and resident physician. Documentation for date of: 09/28/25 Patient is a 40-year-old female with a past medical history of hypertension on amlodipine and nephrolithiasis who presented to the emergency room on 09/25/2025 with a chief complaint of left breast mass with fevers and chills. Elevated WBC count of 21.8 and temperature of 100.5 F on admission. Patient examined at bedside. Denied pain or tenderness to left breast mass that is well circumscribed and non mobile. Left breast mass and multiple breast nodules concerning for malignancy vs abscess, has been afebrile since admission, WBC downtrending from 21.8--> 8.6 vs fibrotic changes. Pending CT breast biopsy by IR on 09/29/2025. Ceftriaxone on 09/26/2025 & Vancomycin 09/26, DAY 3 of antibiotics. Blood cultures negative. Covering UTI w/ Ceftriaxone. Senior Resident Attestation: I have discussed the case with supervising physician and graphic design intern physician involved in the care of patient. I personally saw and examined patient and discussed the assessment and plan with the entire medical team, including attending. I agree with assessment and plan as documented below. - The patient's plan was discussed with attending Dr. Bethany Garcia MD PGY2 Internal Medicine Subjective Subjective Interval history: No acute overnight events. Patient seen and examined and examined at bedside. Patient reports that pain greatly improved of left breast. Patient also endorses for the past year has had episodes of night sweats with vague chest and neck soreness about 1-2 times a week for the past month which she originally attributed to anxiety and higher blood pressure. Patient also endorsed that she was on Ozempic June and July which she discontinued end of July, however lost 10 pounds in August after stopping Ozempic. VSS. Hemoglobin stable low 8.3. IR to perform ultrasounded guided biopsy of left breast tomorrow, however patient will still need full diagnostic mammogram. Exam Vital Signs Temp Pulse Resp BP Pulse Ox O2 Del Method 98.5 F 73 18 111/64 99 Room Air 09/28/25 11:42 09/28/25 13:21 09/28/25 13:21 09/28/25 11:42 09/28/25 11:42 09/28/25 11:42 Narrative Exam GENERAL: AOx3, no acute distress, Japanese speaking HEENT: mucous membranes moist, bilateral sclera anicteric CARDIOVASCULAR: regular rate and rhythm, S1/S2 present, no murmurs appreciated BREAST: L breast 3 cm mass non fluctuant, tender to touch present lateral to L nipple at 2 o clock PULMONARY: clear to auscultation bilaterally, no rales/rhonchi/wheezes ABDOMINAL: soft, non-tender, non-distended, no rebound/guarding, bowel sounds present, bilateral scars above ASIS from kidney surgery in [place] EXTREMITIES: no peripheral edema SKIN: warm and dry, intact, no rashes NEURO: CN II-XII grossly intact, no focal deficits, alert, following commands Objective Labs 09/28/25 05:00 09/28/25 05:00 Labs: Laboratory Results - last 24 hr 09/26/25 09/27/25 09/28/25 06:09 22:20 05:00 WBC 8.6 RBC 3.83 L Hgb 8.3 L Hct 27.0 L MCV 71 L MCH 21.7 L MCHC 30.7 L RDW Std Deviation 41.1 Plt Count 450 H Neut % (Auto) 71 Lymph % (Auto) 20 [place] % (Auto) 7 Eos % (Auto) 1 Baso % (Auto) 1 Neut # (Auto) 6.1 Lymph # (Auto) 1.7 [place] # (Auto) 0.6 Eos # (Auto) 0.1 Baso # (Auto) 0.1 Immature Gran # (Auto) 0.04 H Absolute Nucleated RBC 0.00 Immature Gran % 1 H Nucleated RBC % 0 Sodium 143 Potassium 3.9 Chloride 106 Carbon Dioxide 25.5 Anion Gap 12 BUN 10 Creatinine 0.7 Estim Creat Clear Calc 106.1 eGFR > 60 BUN/Creatinine Ratio 14 Glucose 118 H Calculated Osmolality 284 Calcium 8.9 Vitamin B12 626 Folate 15.14 Vancomycin Trough 7.1 Quality Measures Quality Measures sepsis Current suspected stage: ruled out Possible source: skin/soft tissue Blood cultures ordered: no Antibiotic ordered: Yes Assessment & Plan Assessment Current Active Medications: Generic Name Dose Route Start Last Admin Trade Name Freq PRN Reason Stop Dose Admin Acetaminophen 650 mg 09/26/25 03:04 09/27/25 16:06 Acetaminophen 325 Mg Tablet PO 10/26/25 03:03 650 mg Q6H PRN Administration Fever >101.5 Hydrocodone Bitart/Acetaminophen 1 tab 09/26/25 03:04 09/26/25 23:40 Hydrocodone/Apap 5/325 Tablet PO 10/01/25 03:03 1 tab Q4HR PRN Administration PAIN SCALE 7-10 (Severe Ceftriaxone Sodium/Dextrose 1 gm in 50 mls @ 100 mls/hr 09/26/25 14:23 09/28/25 08:30 Rocephin/D5w 1gm Iv Premix IV 10/03/25 14:22 100 mls/hr QDAY ADITYA Administration Vancomycin/Sodium Chloride 200 mls @ 120 mls/hr 09/27/25 10:45 09/28/25 10:42 Vancomycin/Ns 1 Gm Ivpb IV 10/04/25 10:44 120 mls/hr BID@1000,2200 ADITYA Administration Protocol Morphine Sulfate 2 mg 09/26/25 03:04 Morphine Sulf Inj 4 Mg/Ml Vial IVP 10/01/25 03:03 Q6HR PRN BREAKTHROUGH PAIN (SEVERE) Protocol Ondansetron HCl 4 mg 09/26/25 03:04 Ondansetron Inj 2 Mg/Ml Inj 2 Ml IVP 10/26/25 03:03 Q6H PRN NAUSEA OR VOMITING Protocol Pantoprazole Sodium 40 mg 09/26/25 09:00 09/28/25 08:30 Pantoprazole 40 Mg Tablet PO 10/26/25 08:59 40 mg QDAY ADITYA Administration Pharmacy Consult 1 each 09/26/25 09:00 Vancomycin Pharmacy To Dose 1 Each Each IV 10/26/25 08:59 QDAY PRN CONSULT Plan A 40-year-old female with significant past medical history of hypertension, nephrolithiasis s/p procedure presented to the hospital with chief complaints of pain and lump in the left breast, fever since 1 day and admitted in view of breast mass, abscess versus breast carcinoma #Left breast mass, 2.8 x 1.3 x 2.8 cm #L breast nodule 5x6 mm #Multiple R breast nodules #Abscess versus malignancy versus mass with superimposed infection Ddx: infectious cysts, superimposed infection, fat necrosis, fibroadenoma, malignancy, trauma Presented to the hospital with chief complaints of pain, lump in the left breast and fever since 1 day. Reported that she noticed the lump on the day before admission and never had similar complaints in the past, lump was there 09/25 night and lump was not there that morning supporting infectious etiology Denies history of breast cancers in the family, noted to have lung cancer in the family, Denies weight gain. Had some weight loss, 10 lbs in August and she was on Ozempic only June and July. Weight loss occurred after Ozempic stopped. Endorses one year of night sweats (about 2-3 times a week) and vague neck soreness, which she originally attributed to high BP per patient. Currently not actively lactating, last child age is 11 years. Denies trauma to the breast, fever, shortness of breath, cough, any other associated symptoms. Diagnostics: Vitals at the time of admission are significant for blood pressure 149/91 mmHg, pulse rate 120 bpm, temperature 100.5 ?F Labs at the time of admission significant for WBC 21.8, platelet count 495, phosphorus 2.1. Pro-Homero is within normal limit. Urinalysis significant for turbid urine, 1+ glucosuria, 1+ blood, 12 RBC, 7 WBC. BCx NGTD. 09/26 Breast ultrasound was done that showed BI-RADS Category 4 - suspicion nodule 1 o'clock position left breast, 25 x 27 mm. 09/27 Repeat breast US on 09/27 shows multiple nodules on L breast: 9 o clock 8x8 mm circumscribed, 10 o clock nodule lower margins 14 x 11 mm, 11:00 nodule circumscribed 7 x 7 mm, 11:00 nodule circumscribed 7 x 10 mm, retroareolar nodule circumcised 7 x 7 mm, 1:00 nodule 2.8 x 1.3 x 2.8 cm irregular and indistinct margins, 3:00 nodule circumcised 5 x 6 mm Plan: - Vancomycin (09/26- - Radiology to perform ultrasound-guided left breast masses biopsy for tomorrow - Consulted general surgeon, Dr. Schafer: no inpatient biopsy per surgery at this time, follow up outpatient - Will still need outpatient diagnostic mammogram - Pain medications as needed, [place] every fourth hourly - Warm compresses #UTI Endorses dysuria and admission UA 7 WBC. s/p macrobid 12/27 x1 Plan: - Ceftriaxone (09/26 - - CTM urinary symptoms # History of hypertension - Blood pressure at the time of admission is 149/91 mmHg - Later the blood pressures are within normal limits Plan - Will hold blood pressure medications for now and resume as needed #Iron deficiency anemia On admission hemoglobin 9.1, microcytic. Iron panel ordered showing iron at 11. Endorses being anemic her whole life. Patient previously took iron supplements for heavy periods however due to vomiting discontinued. Periods are regular soaks through 4 pads a day and periods can last up to 2 weeks. 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 Calvillo for L lithotripsy in 2019. CTAP shows multiple right renal caliculi including 1 large right renal caliculi with mild dilatation of right renal calyces and proximal right ureter, suspicious for urinary tract infection. Plan: - Patient notified - Outpatient urology follow up Hospital Maintenance: Dispo: Medsurg, US guided L breast biopsy tomorrow DVT ppx: SCD GI ppx: Protonix Diet: Regular IV lines: Peripheral Code status: Full Patient plan of care was discussed with the attending physician, Dr. Sims and PGY-2 Dr. Garcia. Ora Thapa, DO Internal Medicine PGY-1
[2025-09-28 21:52] LABS: Vancomycin,Trough 6.5 mcg/mL (5.0-10.0)
[2025-09-29] VITALS: BP 109/70; PULSE 75; RESP 16; TEMP 36.8; O2SAT 99
[2025-09-29 04:00] VITALS: BP 107/70; PULSE 70; RESP 17; TEMP 36.6; O2SAT 99
[2025-09-29 06:29] LABS: Basophils # (Auto) 0.0 Thou/mm3 (0.0-0.2); Basophils % (Auto) 0 % (0-2.5); Eosinophils # (Auto) 0.1 Thou/mm3 (0.0-0.5); Eosinophils % (Auto) 1 % (0-10); Hematocrit 27.8 % (36.0-46.0); Immature Granulocytes Auto 0.05 Thou/mm3 (0.00-0.00); Lymphocytes # (Auto) 1.9 Thou/mm3 (1.0-4.8); Lymphocytes % (Auto) 19 % (10-50); Mean Corpuscular HGB Conc 30.9 g/dl (31.0-37.0); Mean Corpuscular Hemoglobin 21.7 pg (25.0-35.0); Mean Corpuscular Volume 70 fL (80-100); Monocytes # (Auto) 0.8 Thou/mm3 (0.0-0.8); Monocytes % (Auto) 8 % (0-12); Neutrophils # (Auto) 7.0 Thou/mm3 (1.8-7.7); Neutrophils % (Auto) 71 % (37-80); Nucleated Red Blood Cell # 0.00 Thou/mm3 (0.00-0.00); Nucleated Red Blood Cell % 0 /100 WBC (0); Platelet Count 444 Thou/mm3 (140-440); RDW Standard Deviation 40.6 fL (36.4-46.3); Red Blood Count 3.96 Miln/mm3 (4.00-5.20); White Blood Count 9.9 Thou/mm3 (3.6-11.0)
[2025-09-29 06:46] LABS: Alanine Aminotransferase 21 U/L (10-49); Albumin, Serum 4.1 gm/dL (3.5-5.0); Albumin/Globulin Ratio 1.4 (1.2-2.2); Alkaline Phosphatase 92 U/L (46-116); Anion Gap 12 (7-16); Aspartate Amino Transferase 18 U/L (0-34); BUN/Creatinine Ratio 16 Ratio (12-20); Bilirubin,Total 0.2 mg/dL (0.3-1.2); Blood Urea Nitrogen 11 mg/dL (9-23); Calcium 9.4 mg/dL (8.3-10.6); Calcium (Corrected) 9.4 mg/dL (8.5-10.1); Carbon Dioxide 24.1 mMol/L (20.0-31.0); Chloride 106 mMol/L (98-107); Creatinine (Component) 0.7 mg/dL (0.6-1.3); Estimated Creatinine Clearance 106.1 mL/min (>60); Globulin 3.0 gm/dL (2.3-3.5); Glucose 131 mg/dL (74-106); Osmolality,Calculated 284 (275-295); Potassium 4.0 mMol/L (3.4-5.1); Sodium 142 mMol/L (136-145); Total Protein 7.1 gm/dL (5.7-8.2); eGFR > 60 See Note
[2025-09-29 06:52] LABS: Hemoglobin 8.6 g/dL (12.0-16.0)
[2025-09-29 07:53] VITALS: BP 108/70; PULSE 82; RESP 17; TEMP 36.7; O2SAT 99
--- NOTE | 2025-09-29 09:00 | XR_ITS ---
EXAM: Ultrasound-guided left breast biopsy. DATE: 09/29/2025, 10:40 a.m. INDICATION: Left breast mass 1:00. COMPARISON: Ultrasound exam from 09/28/2025. PROCEDURE: After discussion of risks and benefits informed consent was obtained. Patient was brought to the ultrasound suite and placed supine on the exam table. Preliminary ultrasound evaluation again demonstrated a 2.6 x 1.2 x 2.3 cm heterogeneous oval mass at 1:00. This was targeted for biopsy. The overlying skin was cleaned and draped in normal sterile surgical fashion. 10 cc of 1% lidocaine was used for local anesthesia. Using ultrasound guidance a 18-gauge needle biopsy system was sequentially advanced into the targeted lesion. Multiple core biopsy samples were obtained and sent to lab for analysis. The needle was withdrawn. Post biopsy marker clip was placed under direct ultrasound evaluation into the targeted mass. Hemostasis was achieved. The access site was covered with a sterile dressing. There were no immediate complications. IMPRESSION: Successful ultrasound-guided left breast biopsy of lesion at 1:00 as described above. Sample sent for evaluation for potential neoplasm and infection. Recommend continue antibiotic therapy as clinically indicated. Follow-up bilateral diagnostic mammogram and bilateral breast ultrasound exam is recommended after biopsy results are obtained.
[2025-09-29] MEDS: PANTOPRAZOLE 40 MG TABLET PO (09:08)
[2025-09-29] MEDS: cefTRIAXone/D5w 1gm IV premix 1 GM/50 ML BAG IV (09:08)
[2025-09-29 12:00] VITALS: BP 120/96; PULSE 92; RESP 16; TEMP 36.2; O2SAT 99
[2025-09-29] MEDS: VANCOMYCIN/WATER 1250 MG IVPB 250 ML 120 MG IV ×2 (12:21→21:39)
[2025-09-29] MEDS: KETOROLAC INJ 30 MG/ML VIAL IVP (15:16)
--- NOTE | 2025-09-29 15:22 | PD.RESPRO ---
Documentation for date of: 09/29/25 ------ No overnight events. Paitnet is now US guided breast biopsy. Pending report. Culture sent out for analysis. Plan to discharge in the next 24 hours on antibiotics. I have discussed the case with supervising physician and hospitality intern physician involved in the care of patient. I personally saw and examined patient and discussed the assessment and plan with the entire medical team, including attending. I agree with assessment and plan as documented below. - The patient's plan was discussed with attending Dr. Barrington Garcia MD PGY2 Internal Medicine Subjective Subjective Interval history: No acute overnight events. Patient seen and examined at bedside. Patient reports greatly improved pain of left breast. Denies nausea/vomiting or fever/chills. VSS. Patient underwent left ultrasound-guided biopsy of breast. Pending official report, Gram stain and abscess culture and anaerobic culture sent for analysis. Will continue abx, pain management post biopsy, and await official procedure report and micro cx. Exam Vital Signs Temp Pulse Resp BP Pulse Ox O2 Del Method 97.2 F 92 16 120/96 H 99 Room Air 09/29/25 12:00 09/29/25 12:00 09/29/25 12:00 09/29/25 12:00 09/29/25 12:00 09/29/25 12:00 Narrative Exam GENERAL: AOx3, no acute distress, Hong Konger speaking HEENT: mucous membranes moist, bilateral sclera anicteric CARDIOVASCULAR: regular rate and rhythm, S1/S2 present, no murmurs appreciated BREAST: L breast 3 cm mass non fluctuant, less tender to touch present lateral to L nipple at 2 o clock PULMONARY: clear to auscultation bilaterally, no rales/rhonchi/wheezes ABDOMINAL: soft, non-tender, non-distended, no rebound/guarding, bowel sounds present, bilateral scars above ASIS from kidney surgery in [place] EXTREMITIES: no peripheral edema SKIN: warm and dry, intact, no rashes NEURO: CN II-XII grossly intact, no focal deficits, alert, following commands Objective Labs 09/30/25 04:34 09/30/25 04:34 Labs: Laboratory Results - last 24 hr 09/28/25 09/29/25 21:18 04:54 WBC 9.9 RBC 3.96 L Hgb 8.6 L Hct 27.8 L MCV 70 L MCH 21.7 L MCHC 30.9 L RDW Std Deviation 40.6 Plt Count 444 H Neut % (Auto) 71 Lymph % (Auto) 19 [place] % (Auto) 8 Eos % (Auto) 1 Baso % (Auto) 0 Neut # (Auto) 7.0 Lymph # (Auto) 1.9 [place] # (Auto) 0.8 Eos # (Auto) 0.1 Baso # (Auto) 0.0 Immature Gran # (Auto) 0.05 H Absolute Nucleated RBC 0.00 Immature Gran % 1 H Nucleated RBC % 0 Sodium 142 Potassium 4.0 Chloride 106 Carbon Dioxide 24.1 Anion Gap 12 BUN 11 Creatinine 0.7 Estim Creat Clear Calc 106.1 eGFR > 60 BUN/Creatinine Ratio 16 Glucose 131 H Calculated Osmolality 284 Calcium 9.4 Corrected Calcium 9.4 Total Bilirubin 0.2 L AST 18 ALT 21 Alkaline Phosphatase 92 Total Protein 7.1 Albumin 4.1 Globulin 3.0 Albumin/Globulin Ratio 1.4 Vancomycin Trough 6.5 Quality Measures Quality Measures sepsis Current suspected stage: ruled out Possible source: skin/soft tissue Blood cultures ordered: no Antibiotic ordered: Yes Assessment & Plan Assessment Current Active Medications: Generic Name Dose Route Start Last Admin Trade Name Freq PRN Reason Stop Dose Admin Acetaminophen 650 mg 09/26/25 03:04 09/27/25 16:06 Acetaminophen 325 Mg Tablet PO 10/26/25 03:03 650 mg Q6H PRN Administration Fever >101.5 Hydrocodone Bitart/Acetaminophen 1 tab 09/26/25 03:04 09/26/25 23:40 Hydrocodone/Apap 5/325 Tablet PO 10/01/25 03:03 1 tab Q4HR PRN Administration PAIN SCALE 7-10 (Severe Ceftriaxone Sodium/Dextrose 1 gm in 50 mls @ 100 mls/hr 09/26/25 14:23 09/29/25 09:08 Rocephin/D5w 1gm Iv Premix IV 10/03/25 14:22 100 mls/hr QDAY ADITYA Administration Vancomycin HCl 250 mls @ 120 mls/hr 09/29/25 10:00 09/29/25 12:21 Vancomycin/Water 1250 Mg Ivpb IV 10/06/25 09:59 120 mls/hr BID@1000,2200 ADITYA Administration Protocol Morphine Sulfate 2 mg 09/26/25 03:04 Morphine Sulf Inj 4 Mg/Ml Vial IVP 10/01/25 03:03 Q6HR PRN BREAKTHROUGH PAIN (SEVERE) Protocol Ondansetron HCl 4 mg 09/26/25 03:04 Ondansetron Inj 2 Mg/Ml Inj 2 Ml IVP 10/26/25 03:03 Q6H PRN NAUSEA OR VOMITING Protocol Pantoprazole Sodium 40 mg 09/26/25 09:00 09/29/25 09:08 Pantoprazole 40 Mg Tablet PO 10/26/25 08:59 40 mg QDAY ADITYA Administration Pharmacy Consult 1 each 09/26/25 09:00 Vancomycin Pharmacy To Dose 1 Each Each IV 10/26/25 08:59 QDAY PRN CONSULT Plan Marysol Angelic 40F pmhx significant for hypertension and nephrolithiasis s/p procedure in [place] presented to [facility] ED 09/25 with chief complaints of pain and lump in the left breast, fever since 1 day and admitted in view of breast mass, abscess versus breast carcinoma. #Left breast mass, 2.8 x 1.3 x 2.8 cm s/p US guided biopsy 09/29 #L breast nodule 5x6 mm #Multiple R breast nodules #Abscess versus malignancy versus mass with superimposed infection Ddx: infectious cysts, superimposed infection, fat necrosis, fibroadenoma, malignancy, trauma Presented to the hospital with chief complaints of pain, lump in the left breast and fever since 1 day. Reported that she noticed the lump on the day before admission and never had similar complaints in the past, lump was there 09/25 night and lump was not there that morning supporting infectious etiology Denies history of breast cancers in the family, noted to have lung cancer in the family, Denies weight gain. Had some weight loss, 10 lbs in August and she was on Ozempic only June and July. Weight loss occurred after Ozempic stopped. Endorses one year of night sweats (about 2-3 times a week) and vague neck soreness, which she originally attributed to high BP per patient. Currently not actively lactating, last child age is 11 years. Denies trauma to the breast, fever, shortness of breath, cough, any other associated symptoms. Diagnostics: Vitals at the time of admission are significant for blood pressure 149/91 mmHg, pulse rate 120 bpm, temperature 100.5 ?F Labs at the time of admission significant for WBC 21.8, platelet count 495, phosphorus 2.1. Pro-Homero is within normal limit. Urinalysis significant for turbid urine, 1+ glucosuria, 1+ blood, 12 RBC, 7 WBC. BCx NGTD. 09/26 Breast ultrasound was done that showed BI-RADS Category 4 - suspicion nodule 1 o'clock position left breast, 25 x 27 mm. 09/27 Repeat breast US on 09/27 shows multiple nodules on L breast: 9 o clock 8x8 mm circumscribed, 10 o clock nodule lower margins 14 x 11 mm, 11:00 nodule circumscribed 7 x 7 mm, 11:00 nodule circumscribed 7 x 10 mm, retroareolar nodule circumcised 7 x 7 mm, 1:00 nodule 2.8 x 1.3 x 2.8 cm irregular and indistinct margins, 3:00 nodule circumcised 5 x 6 mm Plan: - Vancomycin (09/26- - Pending L breast procedure report, gram stain, abscess culture and anaerobic culture taken - Consulted general surgeon, Dr. Schafer: no inpatient biopsy per surgery at this time, follow up outpatient - Will still need outpatient diagnostic mammogram - Pain medications as needed, [place] every fourth hourly - Warm compresses #UTI Endorses dysuria and admission UA 7 WBC. s/p macrobid 09/26 x1 Plan: - Ceftriaxone (09/26 - - CTM urinary symptoms # History of hypertension - Blood pressure at the time of admission is 149/91 mmHg - Later the blood pressures are within normal limits Plan - Will hold blood pressure medications for now and resume as needed #Iron deficiency anemia On admission hemoglobin 9.1, microcytic. Iron panel ordered showing iron at 11. Endorses being anemic her whole life. Patient previously took iron supplements for heavy periods however due to vomiting discontinued. Periods are regular soaks through 4 pads a day and periods can last up to 2 weeks. 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 Calvillo for L lithotripsy in 2019. CTAP shows multiple right renal caliculi including 1 large right renal caliculi with mild dilatation of right renal calyces and proximal right ureter, suspicious for urinary tract infection. Plan: - Patient notified - Outpatient urology follow up Hospital Maintenance: Dispo: Medsurg, abscess culture DVT ppx: SCD GI ppx: Protonix Diet: Regular IV lines: Peripheral Code status: FULL CODE Patient plan of care was discussed with the attending physician, Dr. Ferris and PGY-2 Dr. Garcia. Ora Thapa DO Internal Medicine PGY-1 Attending Provider Attestation/Addendum I, Yohana Ferris DO, attest that I was physically present for the nagel portions of the service and evaluated the patient with the resident and I reviewed and discussed the case with the resident and agree with the resident's findings and plans of care as documented above Patient seen and evaluated this a.m. She states that she has been much improved in terms of breast pain since receiving IV antibiotics. Patient was febrile upon presentation to the ED with elevated leukocytosis of 21.8. Patient denied any drainage or erythema of the left breast, but complained of edema and tightness of the region. Breast ultrasound showed suspicious mass at the 1 o'clock position of the left breast, suspicious for possible breast carcinoma. However, patient symptoms have been greatly improved with IV antibiotics. Patient states that there is no history of breast cancer in her family, but bone and lung cancer. There are no obvious palpable masses on exam in both breasts. Nipple does not appear involuted. Patient denies any drainage from the breasts either. She denies any unintentional weight loss or loss of appetite. She did use Ozempic and lost 10 pounds. She denied any trauma to the breast prior to presentation. Will continue with IV antibiotics and follow-up with breast biopsy/aspiration. Will follow-up with cultures if obtained. Anticipate discharge in the next 24 hours.
[2025-09-29 16:00] VITALS: BP 119/86; PULSE 89; RESP 16; TEMP 36.2; O2SAT 98
[2025-09-29 20:00] VITALS: BP 117/69; PULSE 86; RESP 18; TEMP 36.6; O2SAT 98
[2025-09-30] VITALS: BP 102/65; PULSE 70; RESP 17; TEMP 36.9; O2SAT 98
[2025-09-30 04:00] VITALS: BP 105/62; PULSE 72; RESP 17; TEMP 36.7; O2SAT 97
[2025-09-30 05:54] LABS: Basophils # (Auto) 0.1 Thou/mm3 (0.0-0.2); Basophils % (Auto) 1 % (0-2.5); Eosinophils # (Auto) 0.2 Thou/mm3 (0.0-0.5); Eosinophils % (Auto) 1 % (0-10); Hematocrit 28.3 % (36.0-46.0); Immature Granulocytes Auto 0.04 Thou/mm3 (0.00-0.00); Lymphocytes # (Auto) 1.9 Thou/mm3 (1.0-4.8); Lymphocytes % (Auto) 15 % (10-50); Mean Corpuscular HGB Conc 30.7 g/dl (31.0-37.0); Mean Corpuscular Hemoglobin 21.6 pg (25.0-35.0); Mean Corpuscular Volume 70 fL (80-100); Monocytes # (Auto) 0.9 Thou/mm3 (0.0-0.8); Monocytes % (Auto) 7 % (0-12); Neutrophils # (Auto) 9.4 Thou/mm3 (1.8-7.7); Neutrophils % (Auto) 75 % (37-80); Nucleated Red Blood Cell # 0.00 Thou/mm3 (0.00-0.00); Nucleated Red Blood Cell % 0 /100 WBC (0); Platelet Count 438 Thou/mm3 (140-440); RDW Standard Deviation 41.0 fL (36.4-46.3); Red Blood Count 4.02 Miln/mm3 (4.00-5.20); White Blood Count 12.4 Thou/mm3 (3.6-11.0)
[2025-09-30 05:57] LABS: Hemoglobin 8.7 g/dL (12.0-16.0)
[2025-09-30 06:28] LABS: Albumin, Serum 3.9 gm/dL (3.5-5.0); Anion Gap 11 (7-16); BUN/Creatinine Ratio 21 Ratio (12-20); Blood Urea Nitrogen 15 mg/dL (9-23); Calcium 9.4 mg/dL (8.3-10.6); Calcium (Corrected) 9.5 mg/dL (8.5-10.1); Carbon Dioxide 21.9 mMol/L (20.0-31.0); Chloride 108 mMol/L (98-107); Creatinine (Component) 0.7 mg/dL (0.6-1.3); Estimated Creatinine Clearance 106.1 mL/min (>60); Glucose 113 mg/dL (74-106); Osmolality,Calculated 283 (275-295); Phosphorous 4.0 mg/dL (2.4-5.1); Potassium 4.0 mMol/L (3.4-5.1); Sodium 141 mMol/L (136-145); eGFR > 60 See Note
[2025-09-30 08:00] VITALS: BP 121/84; PULSE 86; RESP 17; TEMP 36.1; O2SAT 99
--- NOTE | 2025-09-30 09:03 | PC.SS ---
Follow up note: Pt is d/c home. Pt will return home upon dc.
[2025-09-30] MEDS: PANTOPRAZOLE 40 MG TABLET PO (09:52)
[2025-09-30] MEDS: cefTRIAXone/D5w 1gm IV premix 1 GM/50 ML BAG IV (09:53)
--- NOTE | 2025-09-30 10:34 | ESDS_ITS ---
<Statement entered by Yohana Ferris DO - 09/30/25 13:59> I, Yohana Ferris DO, attest that I was physically present for the nagel portions of the service and evaluated the patient with the resident and I reviewed and discussed the case with the resident and agree with the resident's findings and plans of care as documented above Planned Discharge Date 09/30/25 DS: Providers Provider Date of admission: 09/26/25 03:04 Primary care physician: Bonnie Anne NP Admitting Provider: Javon Doshi MD Attending Provider on Admission: Javon Doshi MD Consults: 09/26/25 06:05 Consult to General Surgery Routine Comment: For breast lump and suspected abscess Consulting Provider: John Paul Schafer Attending Provider on DC: Yohana Ferris DO Discharging Provider: Yohana Ferris DO DS: Diagnosis Problem List Completed Was Problem List Reviewed/Reconciled?: Yes Hospital Course Hospital Course Hospital course: Summary: Marysol Atwood 40F pmhx significant for hypertension, b/l nephrolithiasis s/p procedures in [place] presented to [facility] ED 09/25 complaints of pain and lump in the left breast, fever since 1 day, admitted in view of breast mass, abscess versus breast carcinoma. Reported that she noticed the lump on the night before admission and never had similar complaints in the past, lump was there 09/25 night and lump was not there that morning supporting infectious etiology. Breast ultrasound was done that showed BI-RADS Category 4 - suspicion nodule 1 o'clock position left breast, 25 x 27 mm. Repeat breast US on 09/27 shows multiple nodules on R breast: 9 o clock 8x8 mm circumscribed, 10 o clock nodule lower margins 14 x 11 mm, 11:00 nodule circumscribed 7 x 7 mm, 11:00 nodule circumscribed 7 x 10 mm, retroareolar nodule circumcised 7 x 7 mm and on L breast:1:00 nodule 2.8 x 1.3 x 2.8 cm irregular and indistinct margins, 3:00 nodule circumcised 5 x 6 mm. Patient was treated with antibiotics of vancomycin. General surgery was consulted for biopsy and was deferred for outpatient. On 09/29 US guided L breast biopsy was performed biopsy sent out and gram stain, abscess culture and anaerobic culture pending. Of note, patient endorsed dysuria and UA on admission showed 7 WBC and patient was treated with ceftriaxone with resolution of symptoms. Also, patient was noted to have microcytic anemia 2/2 iron deficiency. Patient is aware as she has been anemic due to heavy menstrual cycles and was previously on iron tablets but could not tolerate. Educated patient regarding iron infusions outpatient and high iron food intake. Furthermore, CTAP showed multiple right renal calculi including 1 large renal right calculi. Patient has extensive history of kidney stones with surgical history and want to follow-up outpatient regarding current stones. On discharge, patient is hemodynamically stable, labs and vitals reviewed to be stable and patient is ready to be discharged home with close follow up of breast masses. Imagin/27 Breast US: BI-RADS Category 4 - suspicion nodule 1 o'clock position left breast, 25 x 27 mm. 09/27 Repeat breast US: multiple nodules on R breast: 9 o clock 8x8 mm circumscribed, 10 o clock nodule lower margins 14 x 11 mm, 11:00 nodule circumscribed 7 x 7 mm, 11:00 nodule circumscribed 7 x 10 mm, retroareolar nodule circumcised 7 x 7 mm, and on L breast 1:00 nodule 2.8 x 1.3 x 2.8 cm irregular and indistinct margins, 3:00 nodule circumcised 5 x 6 mm CTAP shows multiple right renal caliculi including 1 large right renal caliculi with mild dilatation of right renal calyces and proximal right ureter, suspicious for urinary tract infection. Discharge Recommendations: - Please take all medications as prescribed - START Bactrim for 6 more days - Continue all home medications except as above - Please follow up with your PCP within one week of discharge as you require outpatient diagnostic mammogram and follow up of biopsy outpatient - Recommend iron infusions outpatient and to speak with PCP regarding possible administration - If your symptoms worsen, please seek immediate medical attention and return to your nearest emergency room. - If you do not have a PCP, you may follow up at the 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 Ferris, and PGY-2 Dr. Garcia. Ora Thapa, DO Internal Medicine, PGY-1 - The patient's plan was discussed with attending Dr. Barrington Garcia MD PGY2 Internal Medicine Time Spent with Patient Time attestation: Total time spent providing and/or coordinating discharge services: Time spent: Greater than 30 minutes Exam Vital Signs Temp Pulse Resp BP Pulse Ox O2 Del Method 97.0 F 86 17 121/84 99 Room Air 09/30/25 08:00 09/30/25 08:00 09/30/25 08:00 09/30/25 08:00 09/30/25 08:00 09/30/25 08:00 Narrative Exam GENERAL: AOx3, no acute distress, Ivorian speaking HEENT: mucous membranes moist, bilateral sclera anicteric CARDIOVASCULAR: regular rate and rhythm, S1/S2 present, no murmurs appreciated BREAST: L breast 3 cm mass non fluctuant, very mildly tender to touch present lateral to L nipple at 2 o clock PULMONARY: clear to auscultation bilaterally, no rales/rhonchi/wheezes ABDOMINAL: soft, non-tender, non-distended, no rebound/guarding, bowel sounds present, bilateral scars above ASIS from kidney surgery in [place] EXTREMITIES: no peripheral edema SKIN: warm and dry, intact, no rashes NEURO: CN II-XII grossly intact, no focal deficits, alert, following commands Discharge Plan Plan Patient Disposition: HOME (Self Care) Patient condition on transfer: Stable Care Plan Goals: Instructions: -You have been diagnosed with breast abscess. -Complete 6 more days of antibiotics with bactrim 800-160 mg twice daily. -Please follow up with cultures and cytology report with our primary doctor. -Please schedule mammogram with your primary doctor -Please follow up with your primary care provider within one week of discharge -If your symptoms worsen,please seek immediate medical attention and return to your nearest emergency room -If you do not have a primary care provider, you may follow up at the [facility] at [address], [place] [address], Prescriptions/Referrals Prescriptions/Med Rec: New sulfamethoxazole-trimethoprim [Bactrim DS] 800-160 mg tablet 1 tab PO BID 6 Days Qty: 12 0RF Continued amlodipine 10 mg Tablet 10 mg PO QDAY lisinopril 20 mg tablet 20 mg PO QDAY Patient Comments: TOME 1 TABLETA POR V A ORAL TODOS LOS D aspirin 81 mg tablet,chewable 1 tab PO QDAY Patient Comments: CHEW AND SWALLOW 1 TABLET BY MOUTH ONCE DAILY tramadol 50 mg tablet 50 mg PO QDAY Patient Comments: TAKE 1 TABLET BY MOUTH 2 TIMES A DAY NEEDED FOR 5 DAYS Discontinued lisinopril 10 mg tablet 10 mg PO QDAY Qty: 30 0RF Referrals: Bonnie Anne YARN TESTER [Primary Care Provider] Patient/Caregiver Discharge Instructions Education Materials: Lumpectomy or Breast Biopsy Dc Print Language: Ivorian Stand Alone Forms: [facility] Award Info., Patient Portal Info Letter Discharge Order Discharge Orders: Discharge (Routine); Ordered 09/30/25 Ordered By: Noemi Garcia Quality Discharge Quality Measures VTE prophylaxis
[2025-09-30 12:00] VITALS: BP 120/78; PULSE 86; RESP 17; TEMP 36.2; O2SAT 98
== END 2025-09-30 12:35 | disposition home or self-care (01) | DRG 385 ==
LOC: SERX 23:44 → SERHOLD 09-26 03:24 → S3NX 09-26 12:43
PROVIDERS: Physician Assistant; Admitting Provider Student in an Organized Health Care Education/Training Program; Emergency Provider Emergency Medicine; PCP Nurse Practitioner Family; Visit Provider Student in an Organized Health Care Education/Training Program
DX: N60.02 Solitary cyst of left breast (principal); N64.4 Mastodynia; I10 Essential (primary) hypertension; N39.0 Urinary tract infection, site not specified; D50.9 Iron deficiency anemia, unspecified; N20.0 Calculus of kidney; Z79.82 Long term (current) use of aspirin; Z79.899 Other long term (current) drug therapy; Z87.442 Personal history of urinary calculi; N63.10 Unspecified lump in the right breast, unspecified quadrant
CPT/HCPCS: 36415; 71045; 71250; 74176; 76641; 80048; 80053; 80061; 80069; 80202; 80307; 81001; 81025; 82607; 82746; 83540; 83550; 83605; 83615; 83690; 83735; 83880; 84100; 84145; 84443; 84484; 85025; 85610; 85730; 87040; 87070; 87075; 87205; 87502; 87635; 93005; 96361; 96365; 96366; 96375; 99284; A4648; J0696; J1885; J3373; J3375; J7030; J7050; J7120; A9270